=== PATIENT | female | born 1935 | race African-American/Black ===

== ENCOUNTER 2017-10-31 05:23 | Inpatient (IN) | payer MEDICARE, MEDICAID ==
[~2017-10-31] VITALS: Ht 172.7 cm; Wt 103.9 kg
[2017-10-31] MEDS ORDERED: Albuterol/Ipratropium 3ml neb HHN ONE (05:30)
[2017-10-31] MEDS ORDERED: MELATONIN 3 MG1 EAC1 PO (05:34)
[2017-10-31] MEDS ORDERED: LOPERAMIDE2 MG PO (05:34)
[2017-10-31] MEDS ORDERED: FERROUS SULFAT325 MG ORAL (05:34)
[2017-10-31] MEDS ORDERED: AMIODARONE HCL400 M1 ORAL (05:34)
[2017-10-31] MEDS ORDERED: ADALAT20 MG ORAL (05:34)
[2017-10-31] MEDS ORDERED: ASPIRIN EC325 MG ORAL (05:34)
[2017-10-31] MEDS ORDERED: METFORMIN HCL850 M1 ORAL (05:34)
[2017-10-31] MEDS ORDERED: CARVEDILOL12.5 MG ORAL (05:34)
[2017-10-31] MEDS ORDERED: PROTONIX40 MG ORAL (05:34)
[2017-10-31] MEDS ORDERED: ZOLOFT25 MG ORAL (05:34)
[2017-10-31] MEDS ORDERED: FUROSEMIDE40 MG ORAL (05:34)
[2017-10-31] MEDS ORDERED: TYLENOL EXTRA500 MG ORAL (05:36)
[2017-10-31] MEDS ORDERED: GLIPIZIDE5 MG ORAL (05:36)
[2017-10-31] MEDS ORDERED: VOLTAREN100 G1 TP (05:36)
[2017-10-31] MEDS ORDERED: GABAPENTIN100 MG ORAL (05:39)
[2017-10-31] MEDS ORDERED: NORCO 5-325 TA1 EACH ORAL (05:39)
[2017-10-31] MEDS ORDERED: Albuterol/Ipratropium 3ml neb ONE (05:39)
[2017-10-31 05:52] VITALS: BP 168/83
[2017-10-31 06:04] LABS: BASOPHILS % (AUTO) 1.8 % (0.0-2.0); EOSINOPHILS % (AUTO) 1.2 % (0.0-3.0); HEMATOCRIT 42.4 % (37.0-47.0); HEMOGLOBIN 13.2 G/DL (12.0-16.0); LYMPHOCYTES % (AUTO) 11.8 % (20.0-45.0); MEAN CORPUSCULAR VOLUME 89 FL (80-99); MONOCYTES % (AUTO) 4.9 % (1.0-10.0); NEUTROPHILS % (AUTO) 80.4 % (45.0-75.0); PLATELET COUNT 344 K/UL (150-450); RED BLOOD COUNT 4.74 M/UL (4.20-5.40); RED CELL DISTRIBUTION WIDTH 13.7 % (11.6-14.8); WHITE BLOOD COUNT 16.2 K/UL (4.8-10.8)
--- NOTE | 2017-10-31 06:20 | Emergency Room Report ---
History of Present Illness General Chief Complaint: Upper Respiratory Illness Source: Patient, Medical Record, EMS, PMD Present Illness HPI Is an 82-year-old female [facility] patient with a history of CHF and diabetes. She presents with chief complaint shortness of breath and hypoxia. Onset today. She has a mild cough but no fever or chills. Cough is whitish and sputum. No nausea no vomiting. No chest pain. Does have edema. Worse with exertion. Worse with lying flat. Better with rest. Allergies: Coded Allergies: CODEINE (Verified Allergy, Unknown, 10/31/17) SULFA (SULFONAMIDE ANTIBIOTICS) (Verified Allergy, Unknown, 10/31/17) Patient History Past Medical History: see triage record, old chart reviewed, DM, CHF Past Surgical History: other Pertinent Family History: none Social History: Denies: smoking Now: No Immunizations: other Reviewed Nursing Documentation: PMH: Agreed; PSxH: Agreed Nursing Documentation-PMH Hx Cardiac Problems: Yes - Heart Failure, a.fib Hx Hypertension: Yes - Thrombocytopenia, anemia Hx Diabetes: Yes Hx Gastrointestinal Problems: Yes - Peptic ulcer History Of Psychiatric Problem: Yes - Depression Review of Systems Eye: Denies: eye pain, blurred vision ENT: Denies: ear pain, nose congestion, throat swelling Respiratory: Reports: cough, shortness of breath Cardiovascular: Denies: chest pain, palpitations Gastrointestinal: Denies: abdominal pain, diarrhea, nausea, vomiting Musculoskeletal: Denies: back pain, joint pain Skin: Denies: rash Neurological: Denies: headache, numbness Endocrine: Denies: increased thirst, increased urine Hematologic/Lymphatic: Denies: easy bruising All Other Systems: negative except mentioned in HPI Physical Exam Vital Signs Date Time Temp Pulse Resp B/P (MAP) Pulse Ox O2 Delivery O2 Flow Rate FiO2 10/31/17 05:22 97.7 72 16 168/83 95 Nasal Cannula 6.0 97.7 10/31/17 05:35 28 vitals with high blood pressure and hypoxia Sp02 EP Interpretation: reviewed, normal General Appearance: well appearing, no apparent distress, alert Head: normocephalic, atraumatic Eyes: bilateral eye PERRL, bilateral eye EOMI ENT: hearing grossly normal, normal pharynx Neck: full range of motion, supple, no meningismus Respiratory: chest non-tender, rales Cardiovascular #1: regular rate, rhythm, no murmur Gastrointestinal: normal bowel sounds, non tender, no mass, no organomegaly, no bruit, non-distended Musculoskeletal: back normal, normal range of motion, swelling - 2+ edema Neurologic: alert, oriented x3 Psychiatric: mood/affect normal Skin: warm/dry Medical Decision Making Diagnostic Impression: Primary Impression: Acute exacerbation of CHF (congestive heart failure) Qualified Codes: I50.9 - Heart failure, unspecified ER Course Patient presents with hypoxia and shortness of breath. Chest x-ray showed CHF. Lasix given. No evidence of pneumonia. No evidence of ACS, PE, dissection to name a few. Labs are still pending. Will admit to Dr. Ko for further w/ u. EKG Diagnostic Results Rate: normal Rhythm: NSR ST Segments: no acute changes Rhythm Strip Diag. Results Rhythm Strip Time: 06:19 EP Interpretation: yes Rate: 72 Rhythm: NSR, no PVC's, no ectopy Chest X-Ray Diagnostic Results Chest X-Ray Diagnostic Results : Chest X-Ray Ordered: Yes # of Views/Limited/Complete: 1 View Indication: Shortness of Breath EP Interpretation: Yes Interpretation: no consolidation, no effusion, no pneumothorax, other - CM with CHF Impression: Other - CHF Electronically Signed by: Sushil Yung MD Last Vital Signs Date Time Temp Pulse Resp B/P (MAP) Pulse Ox O2 Delivery O2 Flow Rate FiO2 10/31/17 05:52 72 22 Nasal Cannula 2.0 28 10/31/17 05:52 97.7 168/83 99 97.7 Status: improved Disposition: ADMITTED INPATIENT Condition: Serious Referrals: NOT CHOSEN PEARL/,REFERRING (PCP) SUSHIL YUNG M.D. Oct 31, 2017 06:20
[2017-10-31 06:23] LABS: ANION GAP 11 mmol/L (5-15); BLOOD UREA NITROGEN 20 mg/dL (7-18); CALCIUM 9.4 MG/DL (8.5-10.1); CARBON DIOXIDE 25 MMOL/L (21-32); CHLORIDE 103 MMOL/L (98-107); CREATININE 1.3 MG/DL (0.55-1.30); POTASSIUM 4.7 MMOL/L (3.5-5.1); SODIUM 139 MMOL/L (136-145)
[2017-10-31 06:26] LABS: BILIRUBIN, URINE NEGATIVE (NEGATIVE); COLOR,URINE PALE YELLOW; GLUCOSE, URINE (UA) NEGATIVE (NEGATIVE); KETONES,URINE NEGATIVE (NEGATIVE); LEUKOCYTE ESTERASE ,URINE NEGATIVE (NEGATIVE); NITRITE,URINE POSITIVE (NEGATIVE); PH,URINE 5 (4.5-8.0); PROTEIN,URINE NEGATIVE (NEGATIVE); UROBILINOGEN,URINE NORMAL MG/DL (0.0-1.0)
[2017-10-31 06:30] LABS: APPEARANCE,URINE CLOUDY
[2017-10-31 06:36] LABS: ALANINE AMINOTRANSFERASE 18 U/L (12-78); ALBUMIN 3.8 G/DL (3.4-5.0); ALBUMIN/GLOBULIN RATIO 0.7 (1.0-2.7); ALKALINE PHOSPHATASE 99 U/L (46-116); ASPARTATE AMINO TRANSFERASE 17 U/L (15-37); BILIRUBIN,TOTAL 0.3 MG/DL (0.2-1.0); CKMB 1.7 NG/ML (0.0-3.6); CREATINE KINASE 85 U/L (26-308)
--- NOTE | 2017-10-31 07:04 | Diagnostic Imaging Report ---
EXAM: XR Chest, 1 View CLINICAL HISTORY: SOB TECHNIQUE: Frontal view of the chest. COMPARISON: No relevant prior studies available. FINDINGS: Lungs: Mild patchy infiltrate in the right mid to lower lung. Pleural space: Unremarkable. No pneumothorax. Heart: Enlarged cardiac silhouette. No priya edema or failure. Mediastinum: Unremarkable. Bones/joints: Unremarkable. IMPRESSION: Mild patchy infiltrate in the right mid to lower lung. Cardiomegaly.
[2017-10-31] MEDS ORDERED: Ampicillin/Sulbactam Sod 3 GM in NS 110 ML IVPB ONE (07:15)
[2017-10-31] MEDS ORDERED: Unasyn 3gm Inj ONE (07:27)
[2017-10-31] MEDS ORDERED: Ampicillin/Sulbactam Sod 3 GM in D5W 110 ML IVPB ONE (07:45)
[2017-10-31 07:51] VITALS: BP 154/76
[2017-10-31 08:20] VITALS: BP 152/65
[2017-10-31] MEDS ORDERED: Acetaminophen 500mg (ES) tab ORAL PRN (10:45)
[2017-10-31] MEDS ORDERED: Loperamide 2mg cap ORAL PRN (10:45)
[2017-10-31] MEDS ORDERED: Furosemide 40mg tab ORAL SCH (11:00)
[2017-10-31] MEDS: NovoLOG Insulin Flexpen SUBQ SCH ×3 (11:30→21:34)
--- NOTE | 2017-10-31 11:46 | Pulmonology Progress Note ---
Assessment/Plan Assessment/Plan PI Is an 82-year-old female senior care patient with a history of CHF and diabetes. She presents with chief complaint shortness of breath and hypoxia. Onset today. She has a mild cough but no fever or chills. Cough is whitish and sputum. No nausea no vomiting. No chest pain. Does have edema. Worse with exertion. Worse with lying flat. Better with rest. Allergies: Coded Allergies: CODEINE (Verified Allergy, Unknown, 10/31/17) SULFA (SULFONAMIDE ANTIBIOTICS) (Verified Allergy, Unknown, 10/31/17) Patient History Past Medical History: see triage record, old chart reviewed, DM, CHF Past Surgical History: other Pertinent Family History: none Social History: Denies: smoking Now: No Immunizations: other Reviewed Nursing Documentation: PMH: Agreed; PSxH: Agreed Nursing Documentation-PMH Hx Cardiac Problems: Yes - Heart Failure, a.fib Hx Hypertension: Yes - Thrombocytopenia, anemia Hx Diabetes: Yes Hx Gastrointestinal Problems: Yes - Peptic ulcer History Of Psychiatric Problem: Yes - Depression Review of Systems Eye: Denies: eye pain, blurred vision ENT: Denies: ear pain, nose congestion, throat swelling Respiratory: Reports: cough, shortness of breath Cardiovascular: Denies: chest pain, palpitations Gastrointestinal: Denies: abdominal pain, diarrhea, nausea, vomiting Musculoskeletal: Denies: back pain, joint pain Skin: Denies: rash Neurological: Denies: headache, numbness Endocrine: Denies: increased thirst, increased urine Hematologic/Lymphatic: Denies: easy bruising All Other Systems: negative except mentioned in HPI Physical Exam Vital Signs Date Time Temp Pulse Resp B/P (MAP) Pulse Ox O2 Delivery O2 Flow Rate FiO2 10/31/17 05:22 97.7 72 16 168/83 95 Nasal Cannula 6.0 97.7 10/31/17 05:35 28 vitals with high blood pressure and hypoxia Sp02 EP Interpretation: reviewed, normal General Appearance: well appearing, no apparent distress, alert Head: normocephalic, atraumatic Eyes: bilateral eye PERRL, bilateral eye EOMI ENT: hearing grossly normal, normal pharynx Neck: full range of motion, supple, no meningismus Respiratory: chest non-tender, rales Cardiovascular #1: regular rate, rhythm, no murmur Gastrointestinal: normal bowel sounds, non tender, no mass, no organomegaly, no bruit, non-distended Musculoskeletal: back normal, normal range of motion, swelling - 2+ edema Neurologic: alert, oriented x3 Psychiatric: mood/affect normal Skin: warm/dry Medical Decision Making Diagnostic Impression: Primary Impression: Acute exacerbation of CHF (congestive heart failure) Qualified Codes: I50.9 - Heart failure, unspecified ER Course Patient presents with hypoxia and shortness of breath. Chest x-ray showed CHF. Lasix given. No evidence of pneumonia. No evidence of ACS, PE, dissection to name a few. Labs are still pending. Will admit to Dr. Ko for further w/ u. EKG Diagnostic Results Rate: normal Rhythm: NSR ST Segments: no acute changes Rhythm Strip Diag. Results Rhythm Strip Time: 06:19 EP Interpretation: yes Rate: 72 Rhythm: NSR, no PVC's, no ectopy Chest X-Ray Diagnostic Results Chest X-Ray Diagnostic Results : Chest X-Ray Ordered: Yes # of Views/Limited/Complete: 1 View Indication: Shortness of Breath EP Interpretation: Yes Interpretation: Right LZ patchy infiltrates, no effusion, no pneumothorax, other - CM with CHF Impression: Other - CHF Assessment: RLL pneumonia [place] resident Possible Viral illness CHF Afib previously on ASA Diabetic Plan: Zosyn/Vanc/Doxy CPT Q6 Atrovent HHN Q6 HHN SQ Heparin Aspiration Precautions ST eval [facility] Soft diet Viral studies Sputum c+s Daily labs Lasix 20mg daily/KCL 20mequ daily Subjective ROS Limited/Unobtainable: Yes Constitutional: Reports: no symptoms HEENT: Repors: no symptoms Respiratory: Reports: dry cough, shortness of breath Cardiovascular: Reports: no symptoms Gastrointestinal/Abdominal: Reports: no symptoms Genitourinary: Reports: no symptoms Neurologic: Reports: no symptoms Psychiatric: Reports: no symptoms Skin: Reports: no symptoms Endocrine: Reports: no symptoms Hematologic: Reports: no symptoms Musculoskeletal: Reports: no symptoms Allergies: Coded Allergies: CODEINE (Verified Allergy, Unknown, 10/31/17) SULFA (SULFONAMIDE ANTIBIOTICS) (Verified Allergy, Unknown, 10/31/17) Objective Last 24 Hour Vital Signs Date Time Temp Pulse Resp B/P (MAP) Pulse Ox O2 Delivery O2 Flow Rate FiO2 10/31/17 11:11 Nasal Cannula 2.0 10/31/17 08:47 97.7 83 24 154/76 99 Nasal Cannula 2.0 28 97.7 10/31/17 08:20 97.7 75 18 152/65 (94) 97 97.7 10/31/17 07:51 97.7 83 24 154/76 99 Nasal Cannula 2.0 28 97.7 10/31/17 05:52 72 22 Nasal Cannula 2.0 28 10/31/17 05:52 97.7 72 22 168/83 99 Nasal Cannula 2.0 28 97.7 10/31/17 05:46 72 22 99 Nasal Cannula 2.0 28 10/31/17 05:35 82 20 99 Nasal Cannula 2.0 28 10/31/17 05:35 36 10/31/17 05:35 78 20 Nasal Cannula 2.0 28 10/31/17 05:22 97.7 72 16 168/83 95 Nasal Cannula 6.0 97.7 Microbiology Date/Time Source Procedure Growth Status 10/31/17 07:29 Rectum Received Laboratory Tests 10/31/17 05:40: White Blood Count 16.2H, Red Blood Count 4.74, Hemoglobin 13.2, Hematocrit 42.4 , Mean Corpuscular Volume 89, Mean Corpuscular Hemoglobin 27.9, Mean Corpuscular Hemoglobin Concent 31.3L, Red Cell Distribution Width 13.7, Platelet Count 344, Mean Platelet Volume 6.7, Neutrophils (%) (Auto) 80.4H, Lymphocytes (%) (Auto) 11.8L, Monocytes (%) (Auto) 4.9, Eosinophils (%) (Auto) 1.2, Basophils (%) (Auto) 1.8, Prothrombin Time 10.1, Prothromb Time International Ratio 1.0, Activated Partial Thromboplast Time 27, Sodium Level 139, Potassium Level 4.7, Chloride Level 103, Carbon Dioxide Level 25, Anion Gap 11, Blood Urea Nitrogen 20H, Creatinine 1.3, Estimat Glomerular Filtration Rate , Glucose Level 158H, Lactic Acid Level 2.00, Calcium Level 9.4, Total Bilirubin 0.3, Aspartate Amino Transf (AST/SGOT) 17, Alanine Aminotransferase ( ALT/SGPT) 18, Alkaline Phosphatase 99, Total Creatine Kinase 85, Creatine Kinase MB 1.7, Creatine Kinase MB Relative Index 2.0, Troponin I 0.000, Pro-B- Type Natriuretic Peptide 310H, Total Protein 9.1H, Albumin 3.8, Globulin 5.3, Albumin/Globulin Ratio 0.7L 10/31/17 06:00: Urine Color Pale yellow, Urine Appearance Cloudy, Urine pH 5, Urine Specific [place] 1.015, Urine Protein Negative, Urine Glucose (UA) Negative, Urine Ketones Negative, Urine Occult Blood Negative, Urine Nitrite PositiveH, Urine Bilirubin Negative, Urine Urobilinogen Normal, Urine Leukocyte Esterase Negative , Urine RBC 0, Urine WBC 2-4, Urine Squamous Epithelial Cells None, Urine Bacteria ManyH 10/31/17 07:21: Lactic Acid Level 1.90 Current Medications Medications (Trade) Dose Ordered Sig/Renetta Route PRN Reason Start Time Stop Time Status Last Admin Dose Admin Acetaminophen (Tylenol) 500 mg Q6H PRN ORAL Mild Pain/Temp > 100.5 10/31/17 10:45 11/30/17 10:44 Acetaminophen/ Hydrocodone Bitart ([place] 5/325) 1 tab Q8H PRN ORAL For Pain 10/31/17 10:45 11/07/17 10:44 Amiodarone HCl (Cordarone) 200 mg DAILY ORAL 10/31/17 11:00 11/30/17 10:59 Aspirin (Ecotrin) 325 mg DAILY ORAL 10/31/17 11:00 11/30/17 10:59 Carvedilol (Coreg) 12.5 mg EVERY 12 HOURS ORAL 10/31/17 21:00 11/30/17 20:59 Dextrose (Dextrose 50%) 25 ml STAT PRN IV Hypoglycemia 10/31/17 10:30 11/30/17 10:29 Dextrose (Dextrose 50%) 50 ml STAT PRN IV Hypoglycemia 10/31/17 10:30 11/30/17 10:29 Ferrous Sulfate (Feosol) 325 mg TWICE A DAY ORAL 10/31/17 11:00 11/30/17 10:59 Furosemide (Lasix) 40 mg DAILY ORAL 10/31/17 11:00 11/30/17 10:59 Gabapentin (Neurontin) 100 mg Q8HR ORAL 10/31/17 14:00 11/30/17 13:59 Glipizide (Glucotrol) 5 mg DAILY ORAL 10/31/17 11:00 11/30/17 10:59 Insulin Aspart (NovoLOG) AC+HS SUBQ 10/31/17 11:30 11/30/17 11:29 Loperamide HCl (Imodium) 2 mg Q8H PRN ORAL Diarrhea 10/31/17 10:45 11/30/17 10:44 Metformin HCl (Glucophage) 850 mg BID ORAL 10/31/17 18:00 11/30/17 17:59 Pantoprazole (Protonix) 40 mg EVERY 12 HOURS ORAL 10/31/17 21:00 11/30/17 20:59 Sertraline HCl (Zoloft) 25 mg DAILY ORAL 10/31/17 11:00 11/30/17 10:59 Korey Damico MD Oct 31, 2017 11:46
[2017-10-31 12:00] VITALS: BP 155/60
[2017-10-31] MEDS ORDERED: NovoLOG Insulin Flexpen SUBQ SCH (12:00)
[2017-10-31] MEDS: Aspirin EC 325mg tab ORAL SCH (12:22)
[2017-10-31] MEDS: Sertraline 50mg tab ORAL SCH (12:23)
[2017-10-31] MEDS: Amiodarone 200mg tab ORAL SCH (12:23)
[2017-10-31] MEDS: GlipiZIDE 5mg tab ORAL SCH (12:23)
[2017-10-31] MEDS: Vancomycin 1250mg/D5W 250ml IVPB SCH (13:51)
[2017-10-31] MEDS: Ipratropium 0.02% Inh Soln 2.5ml UD HHN PRN ×2 (13:58→19:43)
[2017-10-31] MEDS: Piperacillin/Tazobactam 3.375 GM in D5W 110 ML IVPB SCH ×2 (14:47→21:32)
[2017-10-31] MEDS: Norco 5mg/325mg tab ORAL PRN ×2 (14:49→23:23)
[2017-10-31] MEDS ORDERED: Guaifenesin/DM 10ml syrup ORAL PRN (15:00)
[2017-10-31 16:00] VITALS: BP 155/56
[2017-10-31 20:00] VITALS: BP 164/70
--- NOTE | 2017-10-31 21:15 | Consultation ---
DATE OF CONSULTATION: 10/31/2017 INFECTIOUS DISEASE CONSULTATION CONSULTING PHYSICIAN: Osito Carney M.D. PRIMARY ATTENDING PHYSICIAN: Nia Valdez M.D. REASON FOR CONSULT: Pneumonia. HISTORY OF PRESENT ILLNESS: This is an 82-year-old female, who is a [facility] resident admitted today complaining of shortness of breath, cough, and sore throat. The patient is awake, alert, and a good historian. Has leukocytosis in the ER and infiltrate in chest x-ray. PAST MEDICAL HISTORY: Significant for diabetes mellitus type 2, congestive heart failure, atrial fibrillation, anemia, depression, peptic ulcer, and chronic edema of legs. PAST SURGICAL HISTORY: Significant for right ankle surgery and tubal surgery many years ago. MEDICATIONS: Lasix, carvedilol, Protonix, doxycycline, metformin, gabapentin, Zosyn, vancomycin, ipratropium, insulin, amiodarone, aspirin, ferrous sulfate, glipizide, Zoloft, and [place]. ALLERGIES: Allergic to sulfa drugs and codeine. SOCIAL HISTORY: [facility] resident. Single. Has seven kids. No smoking. No drugs or alcohol abuse. FAMILY HISTORY: Negative. REVIEW OF SYSTEMS: Some sore throat. No fever. No chills. Has coughing and shortness of breath more in exertion. No nausea. No vomiting. No diarrhea. No dysuria. PHYSICAL EXAMINATION: VITAL SIGNS: Temperature 97.7, pulse 83, and blood pressure 154/76. GENERAL APPEARANCE: No acute distress. Seems to be obese. HEAD AND NECK: [place] conjunctiva. No oral lesion. Uses denture. HEART: Regular. LUNGS: Clear. ABDOMEN: Soft and nontender. EXTREMITY: He has edema of the legs. NEUROLOGIC: Awake, alert, and oriented x3. No focal signs. LABORATORY AND DIAGNOSTIC DATA: WBC 16.2, hemoglobin 13.2, hematocrit 42.4, and platelets 344,000. Sodium 139, potassium 4.7, chloride 102, bicarb 25, BUN 20, creatinine 1.3, and glucose 158. Total protein is 9.1. Albumin is normal. Lactic acid within normal limits. UA was negative for rbc and wbc 2 to 4. Chest x-ray showed right-sided infiltrate in the mid to lower lung. IMPRESSION: Pneumonia in the right lung. The patient also has history of congestive heart failure and chronic edema of the legs. She has diabetes mellitus. Has depression. RECOMMENDATION: We will continue with current antibiotics, vancomycin, Zosyn, and doxycycline. We will follow up the cultures and narrow antibiotics. At the end of my exam, I thank Dr. Valdez for involving me in the care of this patient. Osito Carney M.D. DR: ZHAO JOB#: [id number] CC: VINICIUS
[2017-10-31] MEDS: Carvedilol 12.5mg tab ORAL SCH (21:32)
--- NOTE | 2017-10-31 23:45 | History and Physical Report ---
DATE OF ADMISSION: 10/31/2017 CHIEF COMPLAINT: The patient is admitted for CHF as well as most likely pneumonia. HISTORY OF PRESENT ILLNESS: The patient was hypoxic and having somewhat productive cough at the long-term and transferred the patient. Chest x-ray shows patchy right infiltrate, leukocytosis, cough, and hypoxia at the long-term. The patient is admitted for pneumonia and we will need to rule out congestive heart failure as well. The patient also has elevated BUN. The patient denies orthopnea. Does have leg edema. Denies chills. Denies fever. Denies chest pain. Denies any significant pain. Denies nausea, vomiting, or diarrhea. PAST MEDICAL HISTORY: Significant for arrhythmia, hypertension, degenerative joint disease, iron-deficiency anemia, , non-insulin dependent diabetes mellitus, gastroesophageal reflux disease, depression, and possible history of congestive heart failure, I will need to verify. MEDICATIONS: Amiodarone, aspirin, Coreg, ferrous sulfate, Lasix, gabapentin, glipizide, melatonin, metformin, nifedipine, Protonix, and sertraline. PAST SURGICAL HISTORY: Back surgery, tubal ligation, and right ankle surgery. ALLERGIES: Codeine and sulfa. FAMILY HISTORY: Does have history of hypertension and diabetes. SOCIAL HISTORY: Denies history of alcohol or illicit drugs. She has history of smoking. Comes from a long-term. REVIEW OF SYSTEMS: HEENT: Denies headaches. RESPIRATORY: Reports mildly productive cough for a couple of days. Denies any wheezing. Denies orthopnea. CARDIOVASCULAR: Denies chest pain. Denies orthopnea. GASTROINTESTINAL: Denies nausea, vomiting, or diarrhea. EXTREMITY: Denies any significant pain. CENTRAL NERVOUS SYSTEM: No change in vision or speech pattern. PHYSICAL EXAMINATION: VITAL SIGNS: Temperature is 97.7, pulse is 72, and blood pressure 168/83. HEENT: PERRLA. NECK: Supple. CHEST: Bibasilar rales. CARDIOVASCULAR: Regular rate and rhythm. GASTROINTESTINAL: Soft and distended. Positive bowel sounds. No organomegaly. EXTREMITIES: A 1+ edema. Reflexes are equal on both sides. Has lower extremity weakness, which is chronic. LABORATORY DATA: WBC of 16.2, hemoglobin 13.2, and platelets 344,000. Sodium 139, potassium 4.7, BUN of 20, creatinine 1.3, and glucose of 158. BNP of 310. Chest x-ray shows patchy right infiltrate. Elevated leukocytosis. ASSESSMENT/PLAN: Pneumonia, rule out congestive heart failure. I have asked Dr. Negrete, Dr. Lopez, and Dr. Osito Carney to see the patient for pneumonia and possible congestive heart failure. The patient is in telemetry. We will monitor the patient closely. Nia Valdez M.D. DR: SENA JOB#: [id number] CC:
[2017-11-01] VITALS (7 sets, daily range): BP systolic 154–171; BP diastolic 50–67
[2017-11-01] MEDS: Piperacillin/Tazobactam 3.375 GM in D5W 110 ML IVPB SCH ×3 (06:21→21:43)
[2017-11-01] MEDS: NovoLOG Insulin Flexpen SUBQ SCH ×4 (06:22→21:00)
[2017-11-01 07:16] LABS: ANION GAP 8 mmol/L (5-15); BLOOD UREA NITROGEN 15 mg/dL (7-18); CALCIUM 9.3 MG/DL (8.5-10.1); CARBON DIOXIDE 27 MMOL/L (21-32); CHLORIDE 104 MMOL/L (98-107); CREATININE 1.1 MG/DL (0.55-1.30); POTASSIUM 4.2 MMOL/L (3.5-5.1); SODIUM 139 MMOL/L (136-145)
[2017-11-01 07:28] LABS: BASOPHILS % (AUTO) 1.4 % (0.0-2.0); EOSINOPHILS % (AUTO) 3.1 % (0.0-3.0); HEMATOCRIT 34.3 % (37.0-47.0); HEMOGLOBIN 11.1 G/DL (12.0-16.0); LYMPHOCYTES % (AUTO) 15.4 % (20.0-45.0); MEAN CORPUSCULAR VOLUME 88 FL (80-99); MONOCYTES % (AUTO) 6.1 % (1.0-10.0); NEUTROPHILS % (AUTO) 73.9 % (45.0-75.0); PLATELET COUNT 268 K/UL (150-450); RED CELL DISTRIBUTION WIDTH 13.6 % (11.6-14.8); WHITE BLOOD COUNT 15.7 K/UL (4.8-10.8)
[2017-11-01] MEDS: Carvedilol 12.5mg tab ORAL SCH ×2 (09:15→21:35)
[2017-11-01] MEDS: Amiodarone 200mg tab ORAL SCH (09:15)
[2017-11-01] MEDS: GlipiZIDE 5mg tab ORAL SCH (09:15)
[2017-11-01] MEDS: Aspirin EC 325mg tab ORAL SCH (09:15)
[2017-11-01] MEDS: Sertraline 50mg tab ORAL SCH (09:16)
[2017-11-01] MEDS: Norco 5mg/325mg tab ORAL PRN ×2 (09:25→20:48)
--- NOTE | 2017-11-01 12:10 | Consultation ---
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 the pt has hx of depression and anxiety, the pt is short of breath and is anxious. the pt is not having psychotic or manic sxs Allergies: Coded Allergies: CODEINE (Verified Allergy, Unknown, 10/31/17) SULFA (SULFONAMIDE ANTIBIOTICS) (Verified Allergy, Unknown, 10/31/17) Medication History Scheduled Amiodarone Hcl* (Amiodarone Hcl*), 200 MG ORAL DAILY, (Reported) Aspirin* (Aspirin Ec*), 325 MG ORAL DAILY, (Reported) Carvedilol* (Carvedilol*), 12.5 MG ORAL EVERY 12 HOURS, (Reported) Diclofenac Sodium (Voltaren), 4 GM TP TID, (Reported) Ferrous Sulfate* (Ferrous Sulfate*), 325 MG ORAL TWICE A DAY, (Reported) Furosemide* (Lasix*), 40 MG ORAL DAILY, (Reported) Gabapentin* (Gabapentin*), 100 MG ORAL Q8HR, (Reported) Glipizide* (Glipizide*), 5 MG ORAL BIDAC, (Reported) Loperamide Hcl (Loperamide), 2 MG PO Q8HR, (Reported) Melatonin/Pyridoxine HCl (B6) (Melatonin 3 mg Tablet), 1 EACH PO BEDTIME, ( Reported) Metformin Hcl* (Metformin Hcl*), 850 MG ORAL BID, (Reported) Nifedipine (Nifedipine*), 60 MG ORAL EVERY 12 HOURS, (Reported) Pantoprazole* (Protonix*), 40 MG ORAL EVERY 12 HOURS, (Reported) Sertraline Hcl* (Zoloft*), 25 MG ORAL DAILY, (Reported) Scheduled PRN Acetaminophen* (Tylenol Extra Strength*), 500 MG ORAL Q6H PRN for Mild Pain/ Temp > 100.5, (Reported) Hydrocodone Bit/Acetaminophen 5-325* ([place] 5-325*), 1 TAB ORAL Q8HR PRN for For Pain, (Reported) Patient History Limited by: medical condition History Provided By: Patient, Medical Record, PMD Healthcare decision maker Resuscitation status Full Code Advanced Directive on File Yes Past Medical/Surgical History Past Medical/Surgical History: (1) Acute exacerbation of CHF (congestive heart failure) Review of Systems Psychiatric: Reports: anxiety, depressed feelings, emotional problems Physical Exam General Appearance: no apparent distress, alert Neurologic: oriented x 3, responsive, depressed affect Last 24 Hour Vital Signs Date Time Temp Pulse Resp B/P (MAP) Pulse Ox O2 Delivery O2 Flow Rate FiO2 11/01/17 09:15 69 163/50 11/01/17 09:00 Room Air 11/01/17 08:00 98.4 69 20 163/50 (87) 96 98.4 11/01/17 06:34 158/61 (93) 11/01/17 04:00 98.4 69 19 171/60 (97) 92 98.4 11/01/17 04:00 69 11/01/17 00:00 98.2 67 20 158/59 (92) 96 98.2 11/01/17 00:00 67 10/31/17 21:32 87 164/70 10/31/17 21:00 Room Air 10/31/17 20:00 98.4 87 20 164/70 (101) 91 98.4 10/31/17 20:00 78 10/31/17 19:53 80 20 100 Room Air 21 10/31/17 19:53 21 10/31/17 19:43 78 18 99 Room Air 21 10/31/17 19:42 73 22 Nasal Cannula 2.0 28 10/31/17 16:00 83 10/31/17 16:00 83 10/31/17 16:00 99.6 84 19 155/56 (89) 96 99.6 10/31/17 15:49 98.2 10/31/17 14:49 98.2 10/31/17 14:05 36 10/31/17 14:05 82 20 100 Room Air 21 10/31/17 13:58 77 18 98 Room Air 21 Intake and Output 10/31/17 11/01/17 19:00 07:00 Intake Total 300 ml 367.9 ml Balance 300 ml 367.9 ml Intake Oral 300 ml 240 ml IV Total 127.9 ml # Voids 5 3 Laboratory Tests Test 11/01/17 05:20 White Blood Count 15.7 K/UL (4.8-10.8) H Red Blood Count 3.90 M/UL (4.20-5.40) L Hemoglobin 11.1 G/DL (12.0-16.0) L Hematocrit 34.3 % (37.0-47.0) L Mean Corpuscular Volume 88 FL (80-99) Mean Corpuscular Hemoglobin 28.5 PG (27.0-31.0) Mean Corpuscular Hemoglobin Concent 32.5 G/DL (32.0-36.0) Red Cell Distribution Width 13.6 % (11.6-14.8) Platelet Count 268 K/UL (150-450) Mean Platelet Volume 7.1 FL (6.5-10.1) Neutrophils (%) (Auto) 73.9 % (45.0-75.0) Lymphocytes (%) (Auto) 15.4 % (20.0-45.0) L Monocytes (%) (Auto) 6.1 % (1.0-10.0) Eosinophils (%) (Auto) 3.1 % (0.0-3.0) H Basophils (%) (Auto) 1.4 % (0.0-2.0) Sodium Level 139 MMOL/L (136-145) Potassium Level 4.2 MMOL/L (3.5-5.1) Chloride Level 104 MMOL/L (98-107) Carbon Dioxide Level 27 MMOL/L (21-32) Anion Gap 8 mmol/L (5-15) Blood Urea Nitrogen 15 mg/dL (7-18) Creatinine 1.1 MG/DL (0.55-1.30) Estimat Glomerular Filtration Rate mL/min (>60) Glucose Level 91 MG/DL (74-106) Calcium Level 9.3 MG/DL (8.5-10.1) Microbiology Date/Time Source Procedure Growth Status 10/31/17 23:19 Nasal Nares Influenza Types A,B Antigen (GELY) - Final Complete Height (Feet): 5 Height (Inches): 8.00 Weight (Pounds): 228 Medications Current Medications Medications (Trade) Dose Ordered Sig/Renetta Route PRN Reason Start Time Stop Time Status Last Admin Dose Admin Acetaminophen (Tylenol) 500 mg Q6H PRN ORAL Mild Pain/Temp > 100.5 10/31/17 10:45 11/30/17 10:44 Acetaminophen/ Hydrocodone Bitart ([place] 5/325) 1 tab Q8H PRN ORAL For Pain 10/31/17 10:45 11/07/17 10:44 11/01/17 09:25 Amiodarone HCl (Cordarone) 200 mg DAILY ORAL 10/31/17 11:00 11/30/17 10:59 11/01/17 09:15 Aspirin (Ecotrin) 325 mg DAILY ORAL 10/31/17 11:00 11/30/17 10:59 11/01/17 09:15 Carvedilol (Coreg) 12.5 mg EVERY 12 HOURS ORAL 10/31/17 21:00 11/30/17 20:59 11/01/17 09:15 Dextrose (Dextrose 50%) 25 ml STAT PRN IV Hypoglycemia 10/31/17 10:30 11/30/17 10:29 Dextrose (Dextrose 50%) 50 ml STAT PRN IV Hypoglycemia 10/31/17 10:30 11/30/17 10:29 Doxycycline Monohydrate (Vibramycin) 100 mg EVERY 12 HOURS ORAL 10/31/17 21:00 11/07/17 20:59 11/01/17 09:15 Ferrous Sulfate (Feosol) 325 mg TWICE A DAY ORAL 10/31/17 11:00 11/30/17 10:59 11/01/17 09:15 Furosemide (Lasix) 20 mg DAILY ORAL 11/01/17 09:00 12/01/17 08:59 11/01/17 09:15 Gabapentin (Neurontin) 100 mg Q8HR ORAL 10/31/17 14:00 11/30/17 13:59 11/01/17 06:21 Glipizide (Glucotrol) 5 mg DAILY ORAL 10/31/17 11:00 11/30/17 10:59 11/01/17 09:15 Guaifenesin/ Dextromethorphan (Robitussin DM Syrup) 10 ml Q4H PRN ORAL For Cough 10/31/17 15:00 11/30/17 14:59 Insulin Aspart (NovoLOG) AC+HS SUBQ 10/31/17 11:30 11/30/17 11:29 Ipratropium [place] (Atrovent) 500 mcg Q6H PRN HHN Shortness of Breath 10/31/17 12:00 11/05/17 11:59 10/31/17 19:43 Loperamide HCl (Imodium) 2 mg Q8H PRN ORAL Diarrhea 10/31/17 10:45 11/30/17 10:44 Metformin HCl (Glucophage) 850 mg BID ORAL 10/31/17 18:00 11/30/17 17:59 11/01/17 09:15 Pantoprazole (Protonix) 40 mg EVERY 12 HOURS ORAL 10/31/17 21:00 11/30/17 20:59 11/01/17 09:15 Piperacillin Sod/ Tazobactam Sod 3.375 gm/Dextrose 110 ml @ 27.5 mls/hr Q8HR IVPB 10/31/17 14:00 11/07/17 13:59 11/01/17 06:21 Potassium Chloride (K-Dur) 20 meq DAILY ORAL 10/31/17 14:00 11/30/17 13:59 11/01/17 09:16 Sertraline HCl (Zoloft) 25 mg DAILY ORAL 10/31/17 11:00 11/30/17 10:59 11/01/17 09:16 Vancomycin HCl (Vanco rx to dose) 1 ea DAILY PRN MISC Per rx protocol 10/31/17 12:00 11/30/17 11:59 Vancomycin HCl/ Dextrose 250 ml @ 166.667 mls/hr Q24H IVPB 10/31/17 13:00 11/05/17 12:59 10/31/17 13:51 Assessment/Plan Assessment/Plan MDD Anxiety d/o -zoloft -provided ro/Nasrin Hanson MD Nov 01, 2017 12:10
[2017-11-01] MEDS: Vancomycin 1250mg/D5W 250ml IVPB SCH (12:12)
[2017-11-01] MEDS: Ipratropium 0.02% Inh Soln 2.5ml UD HHN PRN (13:29)
--- NOTE | 2017-11-01 13:51 | Infectious Diseases Prog Note ---
Assessment/Plan Assessment/Plan A; Pneumonia CHF DM Depression Obesity P; Continue Zosyn & Doxycycline Discontinue Vancomycin Subjective ROS Limited/Unobtainable: No Constitutional: Reports: no symptoms Respiratory: Reports: productive cough Cardiovascular: Reports: no symptoms Gastrointestinal/Abdominal: Reports: no symptoms Genitourinary: Reports: no symptoms Neurologic: Reports: no symptoms Allergies: Coded Allergies: CODEINE (Verified Allergy, Unknown, 10/31/17) SULFA (SULFONAMIDE ANTIBIOTICS) (Verified Allergy, Unknown, 10/31/17) Objective Vital Signs Last 24 Hour Vital Signs Date Time Temp Pulse Resp B/P (MAP) Pulse Ox O2 Delivery O2 Flow Rate FiO2 11/01/17 13:27 78 20 98 Room Air 21 11/01/17 13:27 21 11/01/17 12:00 98.1 63 20 154/67 (96) 95 98.1 11/01/17 09:15 69 163/50 11/01/17 09:00 Room Air 11/01/17 08:05 Nasal Cannula 11/01/17 08:00 77 11/01/17 08:00 98.4 69 20 163/50 (87) 96 98.4 11/01/17 06:34 158/61 (93) 11/01/17 04:00 98.4 69 19 171/60 (97) 92 98.4 11/01/17 04:00 69 11/01/17 00:00 98.2 67 20 158/59 (92) 96 98.2 11/01/17 00:00 67 10/31/17 21:32 87 164/70 10/31/17 21:00 Room Air 10/31/17 20:00 98.4 87 20 164/70 (101) 91 98.4 10/31/17 20:00 78 10/31/17 19:53 80 20 100 Room Air 21 10/31/17 19:53 21 10/31/17 19:43 78 18 99 Room Air 21 10/31/17 19:42 73 22 Nasal Cannula 2.0 28 10/31/17 16:00 83 10/31/17 16:00 83 10/31/17 16:00 99.6 84 19 155/56 (89) 96 99.6 10/31/17 15:49 98.2 10/31/17 14:49 98.2 10/31/17 14:05 36 7/22/18 14:05 82 20 100 Room Air 21 10/31/17 13:58 77 18 98 Room Air 21 Height (Feet): 5 Height (Inches): 8.00 Weight (Pounds): 228 General Appearance: no acute distress HEENT: mucous membranes moist Respiratory/Chest: lungs clear Cardiovascular: normal rate Abdomen: soft, non tender Extremities: other - pedal edema Neurologic/Psychiatric: alert, oriented x 3, responsive Microbiology Date/Time Source Procedure Growth Status 10/31/17 23:19 Nasal Nares Influenza Types A,B Antigen (GELY) - Final Complete 10/31/17 06:00 Urine,Clean Catch Urine Culture - Preliminary Gram Negative Bacillus 1 Resulted 10/31/17 07:29 Rectum Received Laboratory Tests Test 11/01/17 05:20 White Blood Count 15.7 K/UL (4.8-10.8) H Red Blood Count 3.90 M/UL (4.20-5.40) L Hemoglobin 11.1 G/DL (12.0-16.0) L Hematocrit 34.3 % (37.0-47.0) L Mean Corpuscular Volume 88 FL (80-99) Mean Corpuscular Hemoglobin 28.5 PG (27.0-31.0) Mean Corpuscular Hemoglobin Concent 32.5 G/DL (32.0-36.0) Red Cell Distribution Width 13.6 % (11.6-14.8) Platelet Count 268 K/UL (150-450) Mean Platelet Volume 7.1 FL (6.5-10.1) Neutrophils (%) (Auto) 73.9 % (45.0-75.0) Lymphocytes (%) (Auto) 15.4 % (20.0-45.0) L Monocytes (%) (Auto) 6.1 % (1.0-10.0) Eosinophils (%) (Auto) 3.1 % (0.0-3.0) H Basophils (%) (Auto) 1.4 % (0.0-2.0) Sodium Level 139 MMOL/L (136-145) Potassium Level 4.2 MMOL/L (3.5-5.1) Chloride Level 104 MMOL/L (98-107) Carbon Dioxide Level 27 MMOL/L (21-32) Anion Gap 8 mmol/L (5-15) Blood Urea Nitrogen 15 mg/dL (7-18) Creatinine 1.1 MG/DL (0.55-1.30) Estimat Glomerular Filtration Rate mL/min (>60) Glucose Level 91 MG/DL (74-106) Calcium Level 9.3 MG/DL (8.5-10.1) Current Medications Medications (Trade) Dose Ordered Sig/Renetta Route PRN Reason Start Time Stop Time Status Last Admin Dose Admin Acetaminophen (Tylenol) 500 mg Q6H PRN ORAL Mild Pain/Temp > 100.5 10/31/17 10:45 11/30/17 10:44 Acetaminophen/ Hydrocodone Bitart ([place] 5/325) 1 tab Q8H PRN ORAL For Pain 10/31/17 10:45 11/07/17 10:44 11/01/17 09:25 Amiodarone HCl (Cordarone) 200 mg DAILY ORAL 10/31/17 11:00 11/30/17 10:59 11/01/17 09:15 Aspirin (Ecotrin) 325 mg DAILY ORAL 10/31/17 11:00 11/30/17 10:59 11/01/17 09:15 Carvedilol (Coreg) 12.5 mg EVERY 12 HOURS ORAL 10/31/17 21:00 11/30/17 20:59 11/01/17 09:15 Dextrose (Dextrose 50%) 25 ml STAT PRN IV Hypoglycemia 10/31/17 10:30 11/30/17 10:29 Dextrose (Dextrose 50%) 50 ml STAT PRN IV Hypoglycemia 10/31/17 10:30 11/30/17 10:29 Doxycycline Monohydrate (Vibramycin) 100 mg EVERY 12 HOURS ORAL 10/31/17 21:00 11/07/17 20:59 11/01/17 09:15 Ferrous Sulfate (Feosol) 325 mg TWICE A DAY ORAL 10/31/17 11:00 11/30/17 10:59 11/01/17 09:15 Furosemide (Lasix) 20 mg DAILY ORAL 11/01/17 09:00 12/01/17 08:59 11/01/17 09:15 Gabapentin (Neurontin) 100 mg Q8HR ORAL 10/31/17 14:00 11/30/17 13:59 11/01/17 06:21 Glipizide (Glucotrol) 5 mg DAILY ORAL 10/31/17 11:00 11/30/17 10:59 11/01/17 09:15 Guaifenesin/ Dextromethorphan (Robitussin DM Syrup) 10 ml Q4H PRN ORAL For Cough 10/31/17 15:00 11/30/17 14:59 Insulin Aspart (NovoLOG) AC+HS SUBQ 10/31/17 11:30 11/30/17 11:29 Ipratropium [place] (Atrovent) 500 mcg Q6H PRN HHN Shortness of Breath 10/31/17 12:00 11/05/17 11:59 11/01/17 13:29 Loperamide HCl (Imodium) 2 mg Q8H PRN ORAL Diarrhea 10/31/17 10:45 11/30/17 10:44 Metformin HCl (Glucophage) 850 mg BID ORAL 10/31/17 18:00 11/30/17 17:59 11/01/17 09:15 Pantoprazole (Protonix) 40 mg EVERY 12 HOURS ORAL 10/31/17 21:00 11/30/17 20:59 11/01/17 09:15 Piperacillin Sod/ Tazobactam Sod 3.375 gm/Dextrose 110 ml @ 27.5 mls/hr Q8HR IVPB 10/31/17 14:00 11/07/17 13:59 11/01/17 06:21 Potassium Chloride (K-Dur) 20 meq DAILY ORAL 10/31/17 14:00 11/30/17 13:59 11/01/17 09:16 Sertraline HCl (Zoloft) 25 mg DAILY ORAL 10/31/17 11:00 11/30/17 10:59 11/01/17 09:16 Vancomycin HCl (Vanco rx to dose) 1 ea DAILY PRN MISC Per rx protocol 10/31/17 12:00 11/30/17 11:59 Vancomycin HCl/ Dextrose 250 ml @ 166.667 mls/hr Q24H IVPB 10/31/17 13:00 11/05/17 12:59 11/01/17 12:12 Osito Carney MD Nov 01, 2017 13:51
--- NOTE | 2017-11-01 15:30 | General Progress Note ---
Assessment/Plan Status: stable Assessment/Plan MDD Anxiety d/o -zoloft -provided ro/st Subjective Date patient seen: Nov 01, 2017 Neurologic/Psychiatric: Reports: anxiety, depressed, emotional problems Allergies: Coded Allergies: CODEINE (Verified Allergy, Unknown, 10/31/17) SULFA (SULFONAMIDE ANTIBIOTICS) (Verified Allergy, Unknown, 10/31/17) Objective Last 24 Hour Vital Signs Date Time Temp Pulse Resp B/P (MAP) Pulse Ox O2 Delivery O2 Flow Rate FiO2 11/01/17 13:27 78 20 98 Room Air 21 11/01/17 13:27 21 11/01/17 12:00 98.1 63 20 154/67 (96) 95 98.1 11/01/17 12:00 62 11/01/17 09:15 69 163/50 11/01/17 09:00 Room Air 11/01/17 08:05 Nasal Cannula 11/01/17 08:00 77 11/01/17 08:00 98.4 69 20 163/50 (87) 96 98.4 11/01/17 06:34 158/61 (93) 11/01/17 04:00 98.4 69 19 171/60 (97) 92 98.4 11/01/17 04:00 69 11/01/17 00:00 98.2 67 20 158/59 (92) 96 98.2 11/01/17 00:00 67 10/31/17 21:32 87 164/70 10/31/17 21:00 Room Air 10/31/17 20:00 98.4 87 20 164/70 (101) 91 98.4 10/31/17 20:00 78 10/31/17 19:53 80 20 100 Room Air 21 10/31/17 19:53 21 10/31/17 19:43 78 18 99 Room Air 21 10/31/17 19:42 73 22 Nasal Cannula 2.0 28 10/31/17 16:00 83 10/31/17 16:00 83 10/31/17 16:00 99.6 84 19 155/56 (89) 96 99.6 10/31/17 15:49 98.2 Intake and Output 10/31/17 11/01/17 19:00 07:00 Intake Total 300 ml 367.9 ml Balance 300 ml 367.9 ml Intake Oral 300 ml 240 ml IV Total 127.9 ml # Voids 5 3 Laboratory Tests 11/01/17 05:20: White Blood Count 15.7H, Red Blood Count 3.90L, Hemoglobin 11.1L, Hematocrit 34.3L, Mean Corpuscular Volume 88, Mean Corpuscular Hemoglobin 28.5, Mean Corpuscular Hemoglobin Concent 32.5, Red Cell Distribution Width 13.6, Platelet Count 268, Mean Platelet Volume 7.1, Neutrophils (%) (Auto) 73.9, Lymphocytes (% ) (Auto) 15.4L, Monocytes (%) (Auto) 6.1, Eosinophils (%) (Auto) 3.1H, Basophils (%) (Auto) 1.4, Sodium Level 139, Potassium Level 4.2, Chloride Level 104, Carbon Dioxide Level 27, Anion Gap 8, Blood Urea Nitrogen 15, Creatinine 1.1, Estimat Glomerular Filtration Rate , Glucose Level 91, Calcium Level 9.3 Height (Feet): 5 Height (Inches): 8.00 Weight (Pounds): 228 General Appearance: no apparent distress, alert Neurologic: oriented x 3, responsive, depressed affect Nasrin Fischer MD Nov 01, 2017 15:30
--- NOTE | 2017-11-01 16:46 | General Progress Note ---
Assessment/Plan Problem List: (1) Pneumonia ICD Codes: J18.9 - Pneumonia, unspecified organism SNOMED: 274690456 (2) Acute exacerbation of CHF (congestive heart failure) ICD Codes: I50.9 - Heart failure, unspecified SNOMED: 57469183 Qualifiers: Qualified Codes: I50.9 - Heart failure, unspecified Status: progressing Assessment/Plan persistent leukocytosis pna chf abx per id afebrile not hypoxic Subjective Allergies: Coded Allergies: CODEINE (Verified Allergy, Unknown, 10/31/17) SULFA (SULFONAMIDE ANTIBIOTICS) (Verified Allergy, Unknown, 10/31/17) Subjective cough Objective Last 24 Hour Vital Signs Date Time Temp Pulse Resp B/P (MAP) Pulse Ox O2 Delivery O2 Flow Rate FiO2 11/01/17 13:27 78 20 98 Room Air 21 11/01/17 13:27 21 11/01/17 12:00 98.1 63 20 154/67 (96) 95 98.1 11/01/17 12:00 62 11/01/17 09:15 69 163/50 11/01/17 09:00 Room Air 11/01/17 08:05 Nasal Cannula 11/01/17 08:00 77 11/01/17 08:00 98.4 69 20 163/50 (87) 96 98.4 11/01/17 06:34 158/61 (93) 11/01/17 04:00 98.4 69 19 171/60 (97) 92 98.4 11/01/17 04:00 69 11/01/17 00:00 98.2 67 20 158/59 (92) 96 98.2 11/01/17 00:00 67 10/31/17 21:32 87 164/70 10/31/17 21:00 Room Air 10/31/17 20:00 98.4 87 20 164/70 (101) 91 98.4 10/31/17 20:00 78 10/31/17 19:53 80 20 100 Room Air 21 10/31/17 19:53 21 10/31/17 19:43 78 18 99 Room Air 21 10/31/17 19:42 73 22 Nasal Cannula 2.0 28 Intake and Output 10/31/17 11/01/17 19:00 07:00 Intake Total 300 ml 367.9 ml Balance 300 ml 367.9 ml Intake Oral 300 ml 240 ml IV Total 127.9 ml # Voids 5 3 Laboratory Tests 11/01/17 05:20: White Blood Count 15.7H, Red Blood Count 3.90L, Hemoglobin 11.1L, Hematocrit 34.3L, Mean Corpuscular Volume 88, Mean Corpuscular Hemoglobin 28.5, Mean Corpuscular Hemoglobin Concent 32.5, Red Cell Distribution Width 13.6, Platelet Count 268, Mean Platelet Volume 7.1, Neutrophils (%) (Auto) 73.9, Lymphocytes (% ) (Auto) 15.4L, Monocytes (%) (Auto) 6.1, Eosinophils (%) (Auto) 3.1H, Basophils (%) (Auto) 1.4, Sodium Level 139, Potassium Level 4.2, Chloride Level 104, Carbon Dioxide Level 27, Anion Gap 8, Blood Urea Nitrogen 15, Creatinine 1.1, Estimat Glomerular Filtration Rate , Glucose Level 91, Calcium Level 9.3 Height (Feet): 5 Height (Inches): 8.00 Weight (Pounds): 228 Respiratory/Chest: lungs clear Abdomen: non tender Nia Valdez MD Nov 01, 2017 16:46
--- NOTE | 2017-11-01 19:16 | Pulmonology Progress Note ---
Assessment/Plan Problems: (1) Pneumonia (2) UTI (urinary tract infection) (3) CHF (congestive heart failure) (4) jail resident (5) Atrial fibrillation (6) Diabetes Assessment/Plan -Optimize pulmonary hygiene/mobilize as tolerated -PRN O2 -PRN ATROVENT ONLY HHN's -Abx per ID (Zosyn & Doxy), F/U Cx's -Infiltrates need to be followed to resolution -Diet per [facility] with STRICT aspiration precautions, VSS ordered -Monitor volumes, continue PO Lasix -DVT Px: Hep SQ -FC Subjective Allergies: Coded Allergies: CODEINE (Verified Allergy, Unknown, 10/31/17) SULFA (SULFONAMIDE ANTIBIOTICS) (Verified Allergy, Unknown, 10/31/17) Subjective AFVSS, stable on RA, + cough, less SOB, no F/C, [facility] eval noted Objective Last 24 Hour Vital Signs Date Time Temp Pulse Resp B/P (MAP) Pulse Ox O2 Delivery O2 Flow Rate FiO2 11/01/17 16:00 97.3 63 20 158/66 (96) 97 97.3 11/01/17 16:00 65 11/01/17 13:27 78 20 98 Room Air 21 11/01/17 13:27 21 11/01/17 12:00 98.1 63 20 154/67 (96) 95 98.1 11/01/17 12:00 62 11/01/17 09:15 69 163/50 11/01/17 09:00 Room Air 11/01/17 08:05 Nasal Cannula 11/01/17 08:00 77 11/01/17 08:00 98.4 69 20 163/50 (87) 96 98.4 11/01/17 06:34 158/61 (93) 11/01/17 04:00 98.4 69 19 171/60 (97) 92 98.4 11/01/17 04:00 69 11/01/17 00:00 98.2 67 20 158/59 (92) 96 98.2 11/01/17 00:00 67 10/31/17 21:32 87 164/70 10/31/17 21:00 Room Air 10/31/17 20:00 98.4 87 20 164/70 (101) 91 98.4 10/31/17 20:00 78 10/31/17 19:53 80 20 100 Room Air 21 10/31/17 19:53 21 10/31/17 19:43 78 18 99 Room Air 21 10/31/17 19:42 73 22 Nasal Cannula 2.0 28 Intake and Output 10/31/17 11/01/17 19:00 07:00 Intake Total 300 ml 367.9 ml Balance 300 ml 367.9 ml Intake Oral 300 ml 240 ml IV Total 127.9 ml # Voids 5 3 General Appearance: WD/WN, no acute distress HEENT: normocephalic, atraumatic, anicteric, mucous membranes moist Respiratory/Chest: chest wall non-tender, no respiratory distress, no accessory muscle use, rhonchi - @ R base Cardiovascular: normal peripheral pulses, normal rate, regular rhythm Abdomen: normal bowel sounds, soft, non tender, no organomegaly, non distended , no mass Extremities: no cyanosis, no clubbing, other - EMERITA Microbiology Date/Time Source Procedure Growth Status 10/31/17 23:19 Nasal Nares Influenza Types A,B Antigen (GELY) - Final Complete 10/31/17 13:35 Sputum Gram Stain - Final Resulted 10/31/17 13:35 Sputum Sputum Culture Pending Resulted 10/31/17 06:00 Urine,Clean Catch Urine Culture - Preliminary Gram Negative Bacillus 1 Resulted 10/31/17 07:29 Rectum Received Laboratory Tests 11/01/17 05:20: White Blood Count 15.7H, Red Blood Count 3.90L, Hemoglobin 11.1L, Hematocrit 34.3L, Mean Corpuscular Volume 88, Mean Corpuscular Hemoglobin 28.5, Mean Corpuscular Hemoglobin Concent 32.5, Red Cell Distribution Width 13.6, Platelet Count 268, Mean Platelet Volume 7.1, Neutrophils (%) (Auto) 73.9, Lymphocytes (% ) (Auto) 15.4L, Monocytes (%) (Auto) 6.1, Eosinophils (%) (Auto) 3.1H, Basophils (%) (Auto) 1.4, Sodium Level 139, Potassium Level 4.2, Chloride Level 104, Carbon Dioxide Level 27, Anion Gap 8, Blood Urea Nitrogen 15, Creatinine 1.1, Estimat Glomerular Filtration Rate , Glucose Level 91, Calcium Level 9.3 Current Medications Medications (Trade) Dose Ordered Sig/Renetta Route PRN Reason Start Time Stop Time Status Last Admin Dose Admin Acetaminophen (Tylenol) 500 mg Q6H PRN ORAL Mild Pain/Temp > 100.5 10/31/17 10:45 11/30/17 10:44 11/01/17 15:05 Acetaminophen/ Hydrocodone Bitart ([place] 5/325) 1 tab Q8H PRN ORAL For Pain 10/31/17 10:45 11/07/17 10:44 11/01/17 09:25 Amiodarone HCl (Cordarone) 200 mg DAILY ORAL 10/31/17 11:00 11/30/17 10:59 11/01/17 09:15 Aspirin (Ecotrin) 325 mg DAILY ORAL 10/31/17 11:00 11/30/17 10:59 11/01/17 09:15 Carvedilol (Coreg) 12.5 mg EVERY 12 HOURS ORAL 10/31/17 21:00 11/30/17 20:59 11/01/17 09:15 Dextrose (Dextrose 50%) 25 ml STAT PRN IV Hypoglycemia 10/31/17 10:30 11/30/17 10:29 Dextrose (Dextrose 50%) 50 ml STAT PRN IV Hypoglycemia 10/31/17 10:30 11/30/17 10:29 Doxycycline Monohydrate (Vibramycin) 100 mg EVERY 12 HOURS ORAL 10/31/17 21:00 11/07/17 20:59 11/01/17 09:15 Ferrous Sulfate (Feosol) 325 mg TWICE A DAY ORAL 10/31/17 11:00 11/30/17 10:59 11/01/17 17:16 Furosemide (Lasix) 20 mg DAILY ORAL 11/01/17 09:00 12/01/17 08:59 11/01/17 09:15 Gabapentin (Neurontin) 100 mg Q8HR ORAL 10/31/17 14:00 11/30/17 13:59 11/01/17 15:05 Glipizide (Glucotrol) 5 mg DAILY ORAL 10/31/17 11:00 11/30/17 10:59 11/01/17 09:15 Guaifenesin/ Dextromethorphan (Robitussin DM Syrup) 10 ml Q4H PRN ORAL For Cough 10/31/17 15:00 11/30/17 14:59 Insulin Aspart (NovoLOG) AC+HS SUBQ 10/31/17 11:30 8/21/18 11:29 Ipratropium [place] (Atrovent) 500 mcg Q6H PRN HHN Shortness of Breath 10/31/17 12:00 11/05/17 11:59 11/01/17 13:29 Loperamide HCl (Imodium) 2 mg Q8H PRN ORAL Diarrhea 10/31/17 10:45 11/30/17 10:44 Metformin HCl (Glucophage) 850 mg BID ORAL 10/31/17 18:00 11/30/17 17:59 11/01/17 17:16 Pantoprazole (Protonix) 40 mg EVERY 12 HOURS ORAL 10/31/17 21:00 11/30/17 20:59 11/01/17 09:15 Piperacillin Sod/ Tazobactam Sod 3.375 gm/Dextrose 110 ml @ 27.5 mls/hr Q8HR IVPB 10/31/17 14:00 11/07/17 13:59 11/01/17 15:05 Potassium Chloride (K-Dur) 20 meq DAILY ORAL 10/31/17 14:00 11/30/17 13:59 11/01/17 09:16 Sertraline HCl (Zoloft) 25 mg DAILY ORAL 10/31/17 11:00 11/30/17 10:59 11/01/17 09:16 Camacho Briones MD Nov 01, 2017 19:16
[2017-11-01] MEDS: Heparin 5000 units/ml inj SUBQ SCH (21:00)
[2017-11-02] VITALS: BP 145/58
[2017-11-02 04:00] VITALS: BP 185/64
[2017-11-02] MEDS: Norco 5mg/325mg tab ORAL PRN ×3 (06:21→21:11)
[2017-11-02] MEDS: Piperacillin/Tazobactam 3.375 GM in D5W 110 ML IVPB SCH ×3 (06:21→21:04)
[2017-11-02] MEDS: NovoLOG Insulin Flexpen SUBQ SCH ×3 (06:32→21:00)
[2017-11-02 07:24] LABS: BASOPHILS % (AUTO) 1.9 % (0.0-2.0); EOSINOPHILS % (AUTO) 2.8 % (0.0-3.0); HEMATOCRIT 34.9 % (37.0-47.0); HEMOGLOBIN 11.2 G/DL (12.0-16.0); LYMPHOCYTES % (AUTO) 14.4 % (20.0-45.0); MEAN CORPUSCULAR VOLUME 88 FL (80-99); MONOCYTES % (AUTO) 7.2 % (1.0-10.0); NEUTROPHILS % (AUTO) 73.7 % (45.0-75.0); PLATELET COUNT 266 K/UL (150-450); RED BLOOD COUNT 3.96 M/UL (4.20-5.40); RED CELL DISTRIBUTION WIDTH 13.5 % (11.6-14.8); WHITE BLOOD COUNT 14.1 K/UL (4.8-10.8)
[2017-11-02 07:50] LABS: ANION GAP 10 mmol/L (5-15); BLOOD UREA NITROGEN 12 mg/dL (7-18); CALCIUM 9.1 MG/DL (8.5-10.1); CARBON DIOXIDE 26 MMOL/L (21-32); CHLORIDE 102 MMOL/L (98-107); CREATININE 1.1 MG/DL (0.55-1.30); POTASSIUM 4.1 MMOL/L (3.5-5.1); SODIUM 138 MMOL/L (136-145)
[2017-11-02 08:00] VITALS: BP 180/66
--- NOTE | 2017-11-02 08:00 | Pulmonology Progress Note ---
Assessment/Plan Problems: (1) Pneumonia (2) UTI (urinary tract infection) (3) CHF (congestive heart failure) (4) [facility] resident (5) Atrial fibrillation (6) Diabetes Assessment/Plan -Optimize pulmonary hygiene/mobilize as tolerated -PRN O2 -PRN ATROVENT ONLY HHN's -Abx per ID (Zosyn & Doxy), F/U Cx's -Infiltrates need to be followed to resolution, repeat CXR in a few days -Diet per [employer] with STRICT aspiration precautions, VSS ordered -Monitor volumes, continue PO Lasix -DVT Px: Hep SQ -FC Subjective Allergies: Coded Allergies: CODEINE (Verified Allergy, Unknown, 10/31/17) SULFA (SULFONAMIDE ANTIBIOTICS) (Verified Allergy, Unknown, 10/31/17) Subjective AFVSS, stable on RA, less cough, less SOB, no F/C Objective Last 24 Hour Vital Signs Date Time Temp Pulse Resp B/P (MAP) Pulse Ox O2 Delivery O2 Flow Rate FiO2 11/02/17 04:00 98.5 71 17 185/64 (104) 95 98.5 11/02/17 04:00 74 11/02/17 00:00 98.4 67 18 145/58 (87) 96 98.4 11/02/17 00:00 66 11/01/17 21:35 91 170/55 11/01/17 21:00 Room Air Room Air 11/01/17 20:00 98.6 70 16 170/55 (93) 95 98.6 11/01/17 20:00 70 11/01/17 19:55 65 20 Nasal Cannula 2.0 28 11/01/17 16:00 97.3 63 20 158/66 (96) 97 97.3 11/01/17 16:00 65 11/01/17 13:27 78 20 98 Room Air 21 11/01/17 13:27 21 11/01/17 12:00 98.1 63 20 154/67 (96) 95 98.1 11/01/17 12:00 62 11/01/17 09:15 69 163/50 11/01/17 09:00 Room Air 11/01/17 08:05 Nasal Cannula Intake and Output 11/01/17 11/02/17 19:00 07:00 Intake Total 600 ml 480 ml Balance 600 ml 480 ml Intake Oral 600 ml 480 ml # Voids 5 5 # Bowel Movements 1 General Appearance: no acute distress HEENT: normocephalic, atraumatic, anicteric, mucous membranes moist Respiratory/Chest: chest wall non-tender, lungs clear, normal breath sounds, no respiratory distress, no accessory muscle use Cardiovascular: normal peripheral pulses, normal rate, regular rhythm Abdomen: normal bowel sounds, soft, non tender, no organomegaly, non distended , no mass Extremities: no cyanosis, no clubbing, no edema Microbiology Date/Time Source Procedure Growth Status 10/31/17 05:40 Blood Blood Culture - Preliminary NO GROWTH AFTER 24 HOURS Resulted 10/31/17 05:25 Blood Blood Culture - Preliminary NO GROWTH AFTER 24 HOURS Resulted 10/31/17 23:19 Nasal Nares Influenza Types A,B Antigen (GELY) - Final Complete 10/31/17 13:35 Sputum Gram Stain - Final Resulted 10/31/17 13:35 Sputum Sputum Culture Pending Resulted 10/31/17 06:00 Urine,Clean Catch Urine Culture - Preliminary Gram Negative Bacillus 1 Resulted 10/31/17 07:29 Rectum Received Laboratory Tests 11/02/17 06:41: White Blood Count 14.1H, Red Blood Count 3.96L, Hemoglobin 11.2L, Hematocrit 34.9L, Mean Corpuscular Volume 88, Mean Corpuscular Hemoglobin 28.2, Mean Corpuscular Hemoglobin Concent 32.0, Red Cell Distribution Width 13.5, Platelet Count 266, Mean Platelet Volume 7.1, Neutrophils (%) (Auto) 73.7, Lymphocytes (% ) (Auto) 14.4L, Monocytes (%) (Auto) 7.2, Eosinophils (%) (Auto) 2.8, Basophils (%) (Auto) 1.9, Sodium Level 138, Potassium Level 4.1, Chloride Level 102, Carbon Dioxide Level 26, Anion Gap 10, Blood Urea Nitrogen 12, Creatinine 1.1, Estimat Glomerular Filtration Rate , Glucose Level 134H, Calcium Level 9.1 Current Medications Medications (Trade) Dose Ordered Sig/Renetta Route PRN Reason Start Time Stop Time Status Last Admin Dose Admin Acetaminophen (Tylenol) 500 mg Q6H PRN ORAL Mild Pain/Temp > 100.5 10/31/17 10:45 11/30/17 10:44 11/01/17 15:05 Acetaminophen/ Hydrocodone Bitart ([place] 5/325) 1 tab Q8H PRN ORAL For Pain 10/31/17 10:45 11/07/17 10:44 11/02/17 06:21 Amiodarone HCl (Cordarone) 200 mg DAILY ORAL 10/31/17 11:00 11/30/17 10:59 11/01/17 09:15 Amlodipine Besylate (Norvasc) 10 mg ONCE ORAL 11/02/17 09:00 11/02/17 10:30 Aspirin (Ecotrin) 325 mg DAILY ORAL 10/31/17 11:00 11/30/17 10:59 11/01/17 09:15 Carvedilol (Coreg) 12.5 mg EVERY 12 HOURS ORAL 10/31/17 21:00 11/30/17 20:59 11/01/17 21:35 Dextrose (Dextrose 50%) 25 ml STAT PRN IV Hypoglycemia 10/31/17 10:30 11/30/17 10:29 Dextrose (Dextrose 50%) 50 ml STAT PRN IV Hypoglycemia 10/31/17 10:30 11/30/17 10:29 Doxycycline Monohydrate (Vibramycin) 100 mg EVERY 12 HOURS ORAL 10/31/17 21:00 11/07/17 20:59 11/01/17 21:34 Ferrous Sulfate (Feosol) 325 mg TWICE A DAY ORAL 10/31/17 11:00 11/30/17 10:59 11/01/17 17:16 Furosemide (Lasix) 20 mg DAILY ORAL 11/01/17 09:00 12/01/17 08:59 11/01/17 09:15 Gabapentin (Neurontin) 100 mg Q8HR ORAL 10/31/17 14:00 11/30/17 13:59 11/02/17 06:21 Glipizide (Glucotrol) 5 mg DAILY ORAL 10/31/17 11:00 11/30/17 10:59 11/01/17 09:15 Guaifenesin/ Dextromethorphan (Robitussin DM Syrup) 10 ml Q4H PRN ORAL For Cough 10/31/17 15:00 11/30/17 14:59 11/02/17 02:42 Heparin Sodium (Porcine) (Heparin 5000 units/ml) 5,000 units EVERY 12 HOURS SUBQ 11/01/17 21:00 12/01/17 20:59 Insulin Aspart (NovoLOG) AC+HS SUBQ 10/31/17 11:30 11/30/17 11:29 11/02/17 06:32 Ipratropium [place] (Atrovent) 500 mcg Q6H PRN HHN Shortness of Breath 10/31/17 12:00 11/05/17 11:59 11/01/17 13:29 Loperamide HCl (Imodium) 2 mg Q8H PRN ORAL Diarrhea 10/31/17 10:45 11/30/17 10:44 Metformin HCl (Glucophage) 850 mg BID ORAL 10/31/17 18:00 11/30/17 17:59 11/01/17 17:16 Pantoprazole (Protonix) 40 mg EVERY 12 HOURS ORAL 10/31/17 21:00 11/30/17 20:59 11/01/17 21:34 Piperacillin Sod/ Tazobactam Sod 3.375 gm/Dextrose 110 ml @ 27.5 mls/hr Q8HR IVPB 10/31/17 14:00 11/07/17 13:59 11/02/17 06:21 Potassium Chloride (K-Dur) 20 meq DAILY ORAL 10/31/17 14:00 11/30/17 13:59 11/01/17 09:16 Sertraline HCl (Zoloft) 25 mg DAILY ORAL 10/31/17 11:00 11/30/17 10:59 11/01/17 09:16 Camacho Briones MD Nov 02, 2017 08:00
[2017-11-02] MEDS: Carvedilol 12.5mg tab ORAL SCH ×2 (08:18→20:58)
[2017-11-02] MEDS: Aspirin EC 325mg tab ORAL SCH (08:18)
[2017-11-02] MEDS: Amiodarone 200mg tab ORAL SCH (08:18)
[2017-11-02] MEDS: Sertraline 50mg tab ORAL SCH (08:20)
[2017-11-02] MEDS: GlipiZIDE 5mg tab ORAL SCH (08:20)
[2017-11-02] MEDS: Heparin 5000 units/ml inj SUBQ SCH ×2 (08:21→21:08)
[2017-11-02] MEDS ORDERED: HydrALAZINE 25mg tab ORAL PRN (08:30)
--- NOTE | 2017-11-02 10:35 | Consultation ---
Consult Note Consult Note asked to evaluate for management of uncontrolled HTN Current conditions: patient interviewed, examined and data reviewed (1) Pneumonia (2) UTI (urinary tract infection) (3) CHF (congestive heart failure) (4) care home resident (5) Atrial fibrillation (6) Diabetes Assessment/Plan HTN DM Anemia Pneumonia At [facility] Hydralazine 2D echo Anemia debora BS check Ghanshyam Negrete MD Nov 02, 2017 10:35
[2017-11-02 11:11] LABS: FERRITIN 81 NG/ML (8-388)
[2017-11-02 11:28] LABS: % IRON SATURATION 7 % (15-50); IRON 20 ug/dL (50-175); TOTAL IRON BINDING CAPACITY 294 ug/dL (250-450)
[2017-11-02 11:35] LABS: ALANINE AMINOTRANSFERASE 16 U/L (12-78); ALBUMIN 3.1 G/DL (3.4-5.0); ALKALINE PHOSPHATASE 77 U/L (46-116); ASPARTATE AMINO TRANSFERASE 22 U/L (15-37); BILIRUBIN,DIRECT 0.2 MG/DL (0.0-0.3); BILIRUBIN,TOTAL 0.5 MG/DL (0.2-1.0); CHOLESTEROL 163 MG/DL (< 200); HDL CHOLESTEROL 59 MG/DL (40-60); TRIGLYCERIDES 75 MG/DL (30-150)
[2017-11-02 12:00] VITALS: BP 166/59
--- NOTE | 2017-11-02 13:28 | Infectious Diseases Prog Note ---
Assessment/Plan Assessment/Plan A; Pneumonia with klebsiella CHF DM Depression Obesity P; Continue Zosyn & Doxycycline will f/u cultures Subjective ROS Limited/Unobtainable: No Constitutional: Reports: no symptoms Respiratory: Reports: productive cough Cardiovascular: Reports: no symptoms Gastrointestinal/Abdominal: Reports: no symptoms Genitourinary: Reports: no symptoms Allergies: Coded Allergies: CODEINE (Verified Allergy, Unknown, 10/31/17) SULFA (SULFONAMIDE ANTIBIOTICS) (Verified Allergy, Unknown, 10/31/17) Objective Vital Signs Last 24 Hour Vital Signs Date Time Temp Pulse Resp B/P (MAP) Pulse Ox O2 Delivery O2 Flow Rate FiO2 11/02/17 12:00 64 11/02/17 12:00 97.2 67 20 166/59 (94) 97 97.2 11/02/17 09:00 74 185/64 11/02/17 09:00 Room Air Room Air 11/02/17 08:18 74 185/64 11/02/17 08:00 69 11/02/17 08:00 74 20 Nasal Cannula 2.0 28 11/02/17 08:00 98.4 11/02/17 08:00 98.4 67 18 180/66 (104) 95 98.4 11/02/17 04:00 98.5 71 17 185/64 (104) 95 98.5 11/02/17 04:00 74 11/02/17 00:00 98.4 67 18 145/58 (87) 96 98.4 11/02/17 00:00 66 11/01/17 21:35 91 170/55 11/01/17 21:00 Room Air Room Air 11/01/17 20:00 98.6 70 16 170/55 (93) 95 98.6 11/01/17 20:00 70 11/01/17 19:55 65 20 Nasal Cannula 2.0 28 11/01/17 16:00 97.3 63 20 158/66 (96) 97 97.3 11/01/17 16:00 65 11/01/17 13:27 78 20 98 Room Air 21 11/01/17 13:27 21 Height (Feet): 5 Height (Inches): 8.00 Weight (Pounds): 228 General Appearance: no acute distress HEENT: mucous membranes moist Respiratory/Chest: lungs clear Cardiovascular: normal rate Abdomen: soft, non tender Extremities: other - edema decreasing Neurologic/Psychiatric: alert, oriented x 3, responsive Microbiology Date/Time Source Procedure Growth Status 10/31/17 05:40 Blood Blood Culture - Preliminary NO GROWTH AFTER 24 HOURS Resulted 10/31/17 05:25 Blood Blood Culture - Preliminary NO GROWTH AFTER 24 HOURS Resulted 10/31/17 23:19 Nasal Nares Influenza Types A,B Antigen (GELY) - Final Complete 10/31/17 13:35 Sputum Gram Stain - Final Complete 10/31/17 13:35 Sputum Culture - Final Klebsiella Pneumoniae Usual Respiratory Ana Complete 10/31/17 07:29 Nasal Nares MRSA Culture - Final NO METHICILLIN RESISTANT STAPH AUREUS... Complete 10/31/17 06:00 Urine,Clean Catch Urine Culture - Preliminary Gram Negative Bacillus 1 Resulted 10/31/17 07:29 Rectum - Final NO CARBAPENEM-RESISTANT ENTEROBACTERI... Complete 10/31/17 07:24 Rectum VRE Culture - Final NO VANCOMYCIN RESISTANT ENTEROCOCCUS ... Complete Laboratory Tests Test 11/02/17 06:41 White Blood Count 14.1 K/UL (4.8-10.8) H Red Blood Count 3.96 M/UL (4.20-5.40) L Hemoglobin 11.2 G/DL (12.0-16.0) L Hematocrit 34.9 % (37.0-47.0) L Mean Corpuscular Volume 88 FL (80-99) Mean Corpuscular Hemoglobin 28.2 PG (27.0-31.0) Mean Corpuscular Hemoglobin Concent 32.0 G/DL (32.0-36.0) Red Cell Distribution Width 13.5 % (11.6-14.8) Platelet Count 266 K/UL (150-450) Mean Platelet Volume 7.1 FL (6.5-10.1) Neutrophils (%) (Auto) 73.7 % (45.0-75.0) Lymphocytes (%) (Auto) 14.4 % (20.0-45.0) L Monocytes (%) (Auto) 7.2 % (1.0-10.0) Eosinophils (%) (Auto) 2.8 % (0.0-3.0) Basophils (%) (Auto) 1.9 % (0.0-2.0) Sodium Level 138 MMOL/L (136-145) Potassium Level 4.1 MMOL/L (3.5-5.1) Chloride Level 102 MMOL/L (98-107) Carbon Dioxide Level 26 MMOL/L (21-32) Anion Gap 10 mmol/L (5-15) Blood Urea Nitrogen 12 mg/dL (7-18) Creatinine 1.1 MG/DL (0.55-1.30) Estimat Glomerular Filtration Rate mL/min (>60) Glucose Level 134 MG/DL (74-106) H Hemoglobin A1c 6.1 % (4.3-6.0) H Calcium Level 9.1 MG/DL (8.5-10.1) Phosphorus Level 3.0 MG/DL (2.5-4.9) Magnesium Level 1.9 MG/DL (1.8-2.4) Iron Level 20 ug/dL (50-175) L Total Iron Binding Capacity 294 ug/dL (250-450) Percent Iron Saturation 7 % (15-50) L Unsaturated Iron Binding 274 ug/dL (112-346) Ferritin 81 NG/ML (8-388) Total Bilirubin 0.5 MG/DL (0.2-1.0) Direct Bilirubin 0.2 MG/DL (0.0-0.3) Aspartate Amino Transf (AST/SGOT) 22 U/L (15-37) Alanine Aminotransferase (ALT/SGPT) 16 U/L (12-78) Alkaline Phosphatase 77 U/L (46-116) Total Protein 8.1 G/DL (6.4-8.2) Albumin 3.1 G/DL (3.4-5.0) L Triglycerides Level 75 MG/DL (30-150) Cholesterol Level 163 MG/DL (< 200) LDL Cholesterol 101 mg/dL (<100) H HDL Cholesterol 59 MG/DL (40-60) Cholesterol/HDL Ratio 2.8 (3.3-4.4) L Vitamin B12 Level 296 PG/ML (193-986) Folate 7.5 NG/ML (8.6-58.9) L Current Medications Medications (Trade) Dose Ordered Sig/Renetta Route PRN Reason Start Time Stop Time Status Last Admin Dose Admin Acetaminophen (Tylenol) 500 mg Q6H PRN ORAL Mild Pain/Temp > 100.5 10/31/17 10:45 11/30/17 10:44 11/01/17 15:05 Acetaminophen/ Hydrocodone Bitart ([place] 5/325) 1 tab Q8H PRN ORAL For Pain 10/31/17 10:45 11/07/17 10:44 11/02/17 06:21 Amiodarone HCl (Cordarone) 200 mg DAILY ORAL 10/31/17 11:00 11/30/17 10:59 11/02/17 08:18 Amlodipine Besylate (Norvasc) 10 mg DAILY ORAL 11/03/17 09:00 12/03/17 08:59 Aspirin (Ecotrin) 325 mg DAILY ORAL 10/31/17 11:00 11/30/17 10:59 11/02/17 08:18 Carvedilol (Coreg) 12.5 mg EVERY 12 HOURS ORAL 10/31/17 21:00 11/30/17 20:59 11/02/17 08:18 Dextrose (Dextrose 50%) 25 ml STAT PRN IV Hypoglycemia 10/31/17 10:30 11/30/17 10:29 Dextrose (Dextrose 50%) 50 ml STAT PRN IV Hypoglycemia 10/31/17 10:30 11/30/17 10:29 Doxycycline Monohydrate (Vibramycin) 100 mg EVERY 12 HOURS ORAL 10/31/17 21:00 11/07/17 20:59 11/02/17 08:18 Furosemide (Lasix) 20 mg DAILY ORAL 11/01/17 09:00 12/01/17 08:59 11/02/17 08:20 Gabapentin (Neurontin) 100 mg Q8HR ORAL 10/31/17 14:00 11/30/17 13:59 11/02/17 06:21 Guaifenesin/ Dextromethorphan (Robitussin DM Syrup) 10 ml Q4H PRN ORAL For Cough 10/31/17 15:00 11/30/17 14:59 11/02/17 02:42 Heparin Sodium (Porcine) (Heparin 5000 units/ml) 5,000 units EVERY 12 HOURS SUBQ 11/01/17 21:00 12/01/17 20:59 11/02/17 08:21 Hydralazine HCl (Apresoline) 25 mg Q4H PRN ORAL BP over 160 syst 11/02/17 08:30 12/02/17 08:29 Insulin Aspart (NovoLOG) AC+HS SUBQ 10/31/17 11:30 11/30/17 11:29 11/02/17 06:32 Ipratropium [place] (Atrovent) 500 mcg Q6H PRN HHN Shortness of Breath 10/31/17 12:00 11/05/17 11:59 11/01/17 13:29 Loperamide HCl (Imodium) 2 mg Q8H PRN ORAL Diarrhea 10/31/17 10:45 11/30/17 10:44 Metformin HCl (Glucophage) 850 mg BID ORAL 10/31/17 18:00 11/30/17 17:59 11/02/17 08:18 Pantoprazole (Protonix) 40 mg EVERY 12 HOURS ORAL 10/31/17 21:00 11/30/17 20:59 11/02/17 08:18 Piperacillin Sod/ Tazobactam Sod 3.375 gm/Dextrose 110 ml @ 27.5 mls/hr Q8HR IVPB 10/31/17 14:00 11/07/17 13:59 11/02/17 06:21 Potassium Chloride (K-Dur) 20 meq DAILY ORAL 10/31/17 14:00 11/30/17 13:59 11/02/17 08:20 Sertraline HCl (Zoloft) 25 mg DAILY ORAL 10/31/17 11:00 11/30/17 10:59 11/02/17 08:20 Osito Carney MD Nov 02, 2017 13:28
--- NOTE | 2017-11-02 15:13 | General Progress Note ---
Assessment/Plan Assessment/Plan MDD Anxiety d/o -zoloft -provided ro/st Subjective Date patient seen: Nov 02, 2017 Neurologic/Psychiatric: Reports: anxiety, depressed, emotional problems Allergies: Coded Allergies: CODEINE (Verified Allergy, Unknown, 10/31/17) SULFA (SULFONAMIDE ANTIBIOTICS) (Verified Allergy, Unknown, 10/31/17) Objective Last 24 Hour Vital Signs Date Time Temp Pulse Resp B/P (MAP) Pulse Ox O2 Delivery O2 Flow Rate FiO2 11/02/17 14:55 97.2 11/02/17 12:00 64 11/02/17 12:00 97.2 67 20 166/59 (94) 97 97.2 11/02/17 09:00 74 185/64 11/02/17 09:00 Room Air Room Air 11/02/17 08:18 74 185/64 11/02/17 08:00 69 11/02/17 08:00 74 20 Nasal Cannula 2.0 28 11/02/17 08:00 98.4 11/02/17 08:00 98.4 67 18 180/66 (104) 95 98.4 11/02/17 04:00 98.5 71 17 185/64 (104) 95 98.5 11/02/17 04:00 74 11/02/17 00:00 98.4 67 18 145/58 (87) 96 98.4 11/02/17 00:00 66 11/01/17 21:35 91 170/55 11/01/17 21:00 Room Air Room Air 11/01/17 20:00 98.6 70 16 170/55 (93) 95 98.6 11/01/17 20:00 70 11/01/17 19:55 65 20 Nasal Cannula 2.0 28 11/01/17 16:00 97.3 63 20 158/66 (96) 97 97.3 11/01/17 16:00 65 Intake and Output 11/01/17 11/02/17 19:00 07:00 Intake Total 600 ml 480 ml Balance 600 ml 480 ml Intake Oral 600 ml 480 ml # Voids 5 5 # Bowel Movements 1 Laboratory Tests 11/02/17 06:41: White Blood Count 14.1H, Red Blood Count 3.96L, Hemoglobin 11.2L, Hematocrit 34.9L, Mean Corpuscular Volume 88, Mean Corpuscular Hemoglobin 28.2, Mean Corpuscular Hemoglobin Concent 32.0, Red Cell Distribution Width 13.5, Platelet Count 266, Mean Platelet Volume 7.1, Neutrophils (%) (Auto) 73.7, Lymphocytes (% ) (Auto) 14.4L, Monocytes (%) (Auto) 7.2, Eosinophils (%) (Auto) 2.8, Basophils (%) (Auto) 1.9, Sodium Level 138, Potassium Level 4.1, Chloride Level 102, Carbon Dioxide Level 26, Anion Gap 10, Blood Urea Nitrogen 12, Creatinine 1.1, Estimat Glomerular Filtration Rate , Glucose Level 134H, Hemoglobin A1c 6.1H, Calcium Level 9.1, Phosphorus Level 3.0, Magnesium Level 1.9, Iron Level 20L, Total Iron Binding Capacity 294, Percent Iron Saturation 7L, Unsaturated Iron Binding 274, Ferritin 81, Total Bilirubin 0.5, Direct Bilirubin 0.2, Aspartate Amino Transf (AST/SGOT) 22, Alanine Aminotransferase (ALT/SGPT) 16, Alkaline Phosphatase 77, Total Protein 8.1, Albumin 3.1L, Triglycerides Level 75, Cholesterol Level 163, LDL Cholesterol 101H, HDL Cholesterol 59, Cholesterol/ HDL Ratio 2.8L, Vitamin B12 Level 296, Folate 7.5L Height (Feet): 5 Height (Inches): 8.00 Weight (Pounds): 228 General Appearance: no apparent distress, alert Neurologic: oriented x 3, responsive, depressed affect Nasrin Fischer MD Nov 02, 2017 15:13
[2017-11-02] MEDS ORDERED: Zolpidem 5mg tab ORAL PRN (15:15)
[2017-11-02 16:00] VITALS: BP 175/62
[2017-11-02] MEDS ORDERED: Ipratropium 0.02% Inh Soln 2.5ml UD HHN PRN (18:00)
[2017-11-02] MEDS ORDERED: Acetaminophen 500mg (ES) tab ORAL PRN (18:30)
--- NOTE | 2017-11-02 18:51 | General Progress Note ---
Assessment/Plan Problem List: (1) Pneumonia ICD Codes: J18.9 - Pneumonia, unspecified organism SNOMED: 622805929 (2) Acute exacerbation of CHF (congestive heart failure) ICD Codes: I50.9 - Heart failure, unspecified SNOMED: 86147946 Qualifiers: Qualified Codes: I50.9 - Heart failure, unspecified Status: progressing Assessment/Plan persistent leukocytosis is improving transfer to [facility] surg no chill pna chf Subjective ROS Limited/Unobtainable: Yes Allergies: Coded Allergies: CODEINE (Verified Allergy, Unknown, 10/31/17) SULFA (SULFONAMIDE ANTIBIOTICS) (Verified Allergy, Unknown, 10/31/17) Subjective cough Objective Last 24 Hour Vital Signs Date Time Temp Pulse Resp B/P (MAP) Pulse Ox O2 Delivery O2 Flow Rate FiO2 11/02/17 16:00 68 11/02/17 16:00 98.2 62 20 175/62 (99) 95 98.2 11/02/17 14:55 97.2 11/02/17 12:00 64 11/02/17 12:00 97.2 67 20 166/59 (94) 97 97.2 11/02/17 09:00 74 185/64 11/02/17 09:00 Room Air Room Air 11/02/17 08:18 74 185/64 11/02/17 08:00 69 11/02/17 08:00 74 20 Nasal Cannula 2.0 28 11/02/17 08:00 98.4 11/02/17 08:00 98.4 67 18 180/66 (104) 95 98.4 11/02/17 04:00 98.5 71 17 185/64 (104) 95 98.5 11/02/17 04:00 74 11/02/17 00:00 98.4 67 18 145/58 (87) 96 98.4 11/02/17 00:00 66 11/01/17 21:35 91 170/55 11/01/17 21:00 Room Air Room Air 11/01/17 20:00 98.6 70 16 170/55 (93) 95 98.6 11/01/17 20:00 70 11/01/17 19:55 65 20 Nasal Cannula 2.0 28 Intake and Output 11/01/17 11/02/17 19:00 07:00 Intake Total 600 ml 480 ml Balance 600 ml 480 ml Intake Oral 600 ml 480 ml # Voids 5 5 # Bowel Movements 1 Laboratory Tests 11/02/17 06:41: White Blood Count 14.1H, Red Blood Count 3.96L, Hemoglobin 11.2L, Hematocrit 34.9L, Mean Corpuscular Volume 88, Mean Corpuscular Hemoglobin 28.2, Mean Corpuscular Hemoglobin Concent 32.0, Red Cell Distribution Width 13.5, Platelet Count 266, Mean Platelet Volume 7.1, Neutrophils (%) (Auto) 73.7, Lymphocytes (% ) (Auto) 14.4L, Monocytes (%) (Auto) 7.2, Eosinophils (%) (Auto) 2.8, Basophils (%) (Auto) 1.9, Sodium Level 138, Potassium Level 4.1, Chloride Level 102, Carbon Dioxide Level 26, Anion Gap 10, Blood Urea Nitrogen 12, Creatinine 1.1, Estimat Glomerular Filtration Rate , Glucose Level 134H, Hemoglobin A1c 6.1H, Calcium Level 9.1, Phosphorus Level 3.0, Magnesium Level 1.9, Iron Level 20L, Total Iron Binding Capacity 294, Percent Iron Saturation 7L, Unsaturated Iron Binding 274, Ferritin 81, Total Bilirubin 0.5, Direct Bilirubin 0.2, Aspartate Amino Transf (AST/SGOT) 22, Alanine Aminotransferase (ALT/SGPT) 16, Alkaline Phosphatase 77, Total Protein 8.1, Albumin 3.1L, Triglycerides Level 75, Cholesterol Level 163, LDL Cholesterol 101H, HDL Cholesterol 59, Cholesterol/ HDL Ratio 2.8L, Vitamin B12 Level 296, Folate 7.5L Height (Feet): 5 Height (Inches): 8.00 Weight (Pounds): 228 Cardiovascular: normal rate Respiratory/Chest: lungs clear Nia Valdez MD Nov 02, 2017 18:51
[2017-11-02] MEDS ORDERED: Guaifenesin/DM 10ml syrup ORAL PRN (19:00)
[2017-11-02] MEDS ORDERED: Loperamide 2mg cap ORAL PRN (19:30)
[2017-11-03] VITALS (7 sets, daily range): BP systolic 148–174; BP diastolic 51–97
[2017-11-03] MEDS: Piperacillin/Tazobactam 3.375 GM in D5W 110 ML IVPB SCH (05:11)
[2017-11-03] MEDS: NovoLOG Insulin Flexpen SUBQ SCH ×4 (06:30→20:47)
[2017-11-03 07:28] LABS: BASOPHILS % (AUTO) 2.3 % (0.0-2.0); EOSINOPHILS % (AUTO) 4.2 % (0.0-3.0); HEMATOCRIT 33.6 % (37.0-47.0); HEMOGLOBIN 10.7 G/DL (12.0-16.0); LYMPHOCYTES % (AUTO) 25.1 % (20.0-45.0); MEAN CORPUSCULAR VOLUME 89 FL (80-99); MONOCYTES % (AUTO) 6.7 % (1.0-10.0); NEUTROPHILS % (AUTO) 61.7 % (45.0-75.0); PLATELET COUNT 268 K/UL (150-450); RED BLOOD COUNT 3.79 M/UL (4.20-5.40); RED CELL DISTRIBUTION WIDTH 13.5 % (11.6-14.8); WHITE BLOOD COUNT 8.6 K/UL (4.8-10.8)
[2017-11-03 07:44] LABS: ANION GAP 8 mmol/L (5-15); BLOOD UREA NITROGEN 12 mg/dL (7-18); CALCIUM 9.2 MG/DL (8.5-10.1); CARBON DIOXIDE 26 MMOL/L (21-32); CHLORIDE 105 MMOL/L (98-107); CREATININE 1.2 MG/DL (0.55-1.30); SODIUM 139 MMOL/L (136-145)
--- NOTE | 2017-11-03 08:29 | Pulmonology Progress Note ---
Assessment/Plan Problems: (1) Pneumonia (2) UTI (urinary tract infection) (3) CHF (congestive heart failure) (4) care home resident (5) Atrial fibrillation (6) Diabetes Assessment/Plan -Optimize pulmonary hygiene/mobilize as tolerated -PRN O2 -PRN ATROVENT ONLY HHN's -Abx per ID (Zosyn & Doxy), F/U Cx's -Infiltrates need to be followed to resolution, repeat CXR ordered -Diet per [employer] with STRICT aspiration precautions, VSS ordered -Monitor volumes, continue PO Lasix -DVT Px: Hep SQ -FC Subjective Allergies: Coded Allergies: CODEINE (Verified Allergy, Unknown, 10/31/17) SULFA (SULFONAMIDE ANTIBIOTICS) (Verified Allergy, Unknown, 10/31/17) Subjective AFVSS, stable on RA, less cough and mobilizing, denies SOB, no F/C, getting OOB Objective Last 24 Hour Vital Signs Date Time Temp Pulse Resp B/P (MAP) Pulse Ox O2 Delivery O2 Flow Rate FiO2 11/03/17 04:00 98.4 61 18 158/61 (93) 98 98.4 11/03/17 00:00 97.4 56 18 167/51 (89) 96 97.4 11/02/17 21:00 Room Air Room Air 11/02/17 20:58 61 175/62 11/02/17 20:00 93 Nasal Cannula 2.0 28 11/02/17 20:00 Nasal Cannula 2.0 28 11/02/17 20:00 98.7 61 19 93 98.7 11/02/17 19:30 60 20 Nasal Cannula 2.0 28 11/02/17 16:00 68 11/02/17 16:00 98.2 62 20 175/62 (99) 95 98.2 11/02/17 14:55 97.2 11/02/17 12:00 64 11/02/17 12:00 97.2 67 20 166/59 (94) 97 97.2 11/02/17 09:00 74 185/64 11/02/17 09:00 Room Air Room Air Intake and Output 11/02/17 11/03/17 19:00 07:00 Intake Total 800 ml 2815.0 ml Balance 800 ml 2815.0 ml Intake Oral 800 ml IV Total 2815.0 ml # Voids 4 3 General Appearance: WD/WN, no acute distress HEENT: normocephalic, atraumatic, anicteric, mucous membranes moist Respiratory/Chest: chest wall non-tender, lungs clear, normal breath sounds, no respiratory distress, no accessory muscle use Cardiovascular: normal peripheral pulses, normal rate, regular rhythm Abdomen: normal bowel sounds, soft, non tender, no organomegaly, non distended , no mass Extremities: no cyanosis, no clubbing, no edema Microbiology Date/Time Source Procedure Growth Status 10/31/17 23:19 Nasal Nares Influenza Types A,B Antigen (GELY) - Final Complete 10/31/17 13:35 Sputum Gram Stain - Final Complete 10/31/17 13:35 Sputum Culture - Final Klebsiella Pneumoniae Usual Respiratory Ana Complete Laboratory Tests 11/03/17 06:50: White Blood Count 8.6, Red Blood Count 3.79L, Hemoglobin 10.7L, Hematocrit 33.6L , Mean Corpuscular Volume 89, Mean Corpuscular Hemoglobin 28.3, Mean Corpuscular Hemoglobin Concent 32.0, Red Cell Distribution Width 13.5, Platelet Count 268, Mean Platelet Volume 7.9, Neutrophils (%) (Auto) 61.7, Lymphocytes (% ) (Auto) 25.1, Monocytes (%) (Auto) 6.7, Eosinophils (%) (Auto) 4.2H, Basophils (%) (Auto) 2.3H, Sodium Level 139, Potassium Level 4.0, Chloride Level 105, Carbon Dioxide Level 26, Anion Gap 8, Blood Urea Nitrogen 12, Creatinine 1.2, Estimat Glomerular Filtration Rate , Glucose Level 110H, Calcium Level 9.2 Current Medications Medications (Trade) Dose Ordered Sig/Renetta Route PRN Reason Start Time Stop Time Status Last Admin Dose Admin Acetaminophen (Tylenol) 500 mg Q6H PRN ORAL Mild Pain/Temp > 100.5 11/02/17 18:30 11/30/17 18:29 Acetaminophen/ Hydrocodone Bitart ([place] 5/325) 1 tab Q8H PRN ORAL PAIN 4-10 11/02/17 18:45 11/07/17 10:44 11/02/17 21:11 Amiodarone HCl (Cordarone) 200 mg DAILY ORAL 11/03/17 09:00 11/30/17 10:59 Amlodipine Besylate (Norvasc) 10 mg DAILY ORAL 11/03/17 09:00 12/03/17 08:59 Aspirin (Ecotrin) 325 mg DAILY ORAL 11/03/17 09:00 11/30/17 10:59 Carvedilol (Coreg) 12.5 mg EVERY 12 HOURS ORAL 11/02/17 21:00 11/30/17 20:59 11/02/17 20:58 Cyanocobalamin (Vitamin B12) 1,000 mcg ONCE IM 11/03/17 08:30 11/03/17 09:30 Dextrose (Dextrose 50%) 25 ml STAT PRN IV Hypoglycemia 11/02/17 18:30 12/02/17 18:29 Dextrose (Dextrose 50%) 50 ml STAT PRN IV Hypoglycemia 11/03/17 18:30 11/30/17 18:29 Doxycycline Monohydrate (Vibramycin) 100 mg EVERY 12 HOURS ORAL 11/02/17 21:00 11/07/17 20:59 11/02/17 20:59 Folic Acid (Folate) 2 mg DAILY ORAL 11/03/17 09:00 12/03/17 08:59 Furosemide (Lasix) 20 mg DAILY ORAL 11/03/17 09:00 12/01/17 08:59 Gabapentin (Neurontin) 100 mg Q8HR ORAL 11/02/17 22:00 11/30/17 13:59 11/03/17 05:15 Guaifenesin/ Dextromethorphan (Robitussin DM Syrup) 10 ml Q4H PRN ORAL For Cough 11/02/17 19:00 11/30/17 14:59 11/03/17 05:16 Heparin Sodium (Porcine) (Heparin 5000 units/ml) 5,000 units EVERY 12 HOURS SUBQ 11/02/17 21:00 12/01/17 20:59 11/02/17 21:08 Hydralazine HCl (Apresoline) 25 mg Q4H PRN ORAL BP over 160 syst 11/02/17 19:00 12/02/17 18:59 Insulin Aspart (NovoLOG) AC+HS SUBQ 11/02/17 21:00 11/30/17 11:29 Ipratropium [place] (Atrovent) 500 mcg Q6H PRN HHN Shortness of Breath 11/02/17 18:00 11/05/17 11:59 Iron Sucrose 200 mg/Sodium Chloride 120 ml @ 240 mls/hr ONCE IV 11/03/17 09:30 11/03/17 10:30 Lisinopril (Zestril) 10 mg DAILY ORAL 11/03/17 09:00 12/03/17 08:59 Loperamide HCl (Imodium) 2 mg Q8H PRN ORAL Diarrhea 11/02/17 19:30 11/30/17 19:29 Metformin HCl (Glucophage) 850 mg BID ORAL 11/02/17 18:00 11/30/17 17:59 11/02/17 18:58 Pantoprazole (Protonix) 40 mg EVERY 12 HOURS ORAL 11/02/17 21:00 11/30/17 20:59 11/02/17 20:58 Piperacillin Sod/ Tazobactam Sod 3.375 gm/Dextrose 110 ml @ 27.5 mls/hr Q8HR IVPB 11/02/17 22:00 11/07/17 13:59 11/03/17 05:11 Potassium Chloride (K-Dur) 20 meq DAILY ORAL 11/03/17 09:00 11/30/17 13:59 Sertraline HCl (Zoloft) 25 mg DAILY ORAL 11/03/17 09:00 11/30/17 10:59 Zolpidem Tartrate (Ambien) 5 mg HSPRN PRN ORAL Insomnia 11/02/17 21:00 11/09/17 20:59 Camacho Briones MD Nov 03, 2017 08:29
[2017-11-03] MEDS ORDERED: Vitamin B12 1000mcg/ml Inj IM SCH (08:30)
[2017-11-03] MEDS ORDERED: Lisinopril 10mg tab ORAL SCH (09:00)
[2017-11-03] MEDS: Sertraline 50mg tab ORAL SCH (09:16)
[2017-11-03] MEDS: Amiodarone 200mg tab ORAL SCH (09:16)
[2017-11-03] MEDS: Aspirin EC 325mg tab ORAL SCH (09:18)
[2017-11-03] MEDS: Carvedilol 12.5mg tab ORAL SCH ×2 (09:19→20:45)
[2017-11-03] MEDS: Heparin 5000 units/ml inj SUBQ SCH ×2 (09:22→20:46)
[2017-11-03] MEDS ORDERED: Iron Sucrose 200 MG in NS 110 ML IV SCH (09:30)
[2017-11-03] MEDS: Norco 5mg/325mg tab ORAL PRN ×2 (09:40→20:44)
--- NOTE | 2017-11-03 10:18 | General Progress Note ---
Assessment/Plan Problem List: (1) Pneumonia ICD Codes: J18.9 - Pneumonia, unspecified organism SNOMED: 488868229 (2) Acute exacerbation of CHF (congestive heart failure) ICD Codes: I50.9 - Heart failure, unspecified SNOMED: 03292870 Qualifiers: Qualified Codes: I50.9 - Heart failure, unspecified Status: progressing Assessment/Plan leukocytosis still coughing not ready for dc possible tommorrow pna chf Subjective ROS Limited/Unobtainable: Yes Allergies: Coded Allergies: CODEINE (Verified Allergy, Unknown, 10/31/17) SULFA (SULFONAMIDE ANTIBIOTICS) (Verified Allergy, Unknown, 10/31/17) Subjective cough Objective Last 24 Hour Vital Signs Date Time Temp Pulse Resp B/P (MAP) Pulse Ox O2 Delivery O2 Flow Rate FiO2 11/03/17 09:40 98.4 11/03/17 09:19 64 148/63 11/03/17 09:18 148/63 11/03/17 09:17 64 148/63 11/03/17 08:00 98.4 64 21 148/63 (91) 95 98.4 11/03/17 06:39 Nasal Cannula 2.0 28 11/03/17 06:39 69 18 Nasal Cannula 2.0 28 11/03/17 06:39 94 Nasal Cannula 2.0 28 11/03/17 04:00 98.4 61 18 158/61 (93) 98 98.4 11/03/17 00:00 97.4 56 18 167/51 (89) 96 97.4 11/02/17 21:00 Room Air Room Air 11/02/17 20:58 61 175/62 11/02/17 20:00 93 Nasal Cannula 2.0 28 11/02/17 20:00 Nasal Cannula 2.0 28 11/02/17 20:00 98.7 61 19 93 98.7 11/02/17 19:30 60 20 Nasal Cannula 2.0 28 11/02/17 16:00 68 11/02/17 16:00 98.2 62 20 175/62 (99) 95 98.2 11/02/17 14:55 97.2 11/02/17 12:00 64 11/02/17 12:00 97.2 67 20 166/59 (94) 97 97.2 Intake and Output 11/02/17 11/03/17 19:00 07:00 Intake Total 800 ml 2815.0 ml Balance 800 ml 2815.0 ml Intake Oral 800 ml IV Total 2815.0 ml # Voids 4 3 Laboratory Tests 11/03/17 06:50: White Blood Count 8.6, Red Blood Count 3.79L, Hemoglobin 10.7L, Hematocrit 33.6L , Mean Corpuscular Volume 89, Mean Corpuscular Hemoglobin 28.3, Mean Corpuscular Hemoglobin Concent 32.0, Red Cell Distribution Width 13.5, Platelet Count 268, Mean Platelet Volume 7.9, Neutrophils (%) (Auto) 61.7, Lymphocytes (% ) (Auto) 25.1, Monocytes (%) (Auto) 6.7, Eosinophils (%) (Auto) 4.2H, Basophils (%) (Auto) 2.3H, Sodium Level 139, Potassium Level 4.0, Chloride Level 105, Carbon Dioxide Level 26, Anion Gap 8, Blood Urea Nitrogen 12, Creatinine 1.2, Estimat Glomerular Filtration Rate , Glucose Level 110H, Calcium Level 9.2 Height (Feet): 5 Height (Inches): 8.00 Weight (Pounds): 225 Neck: supple Cardiovascular: normal rate Respiratory/Chest: lungs clear Nia Valdez MD Nov 03, 2017 10:18
--- NOTE | 2017-11-03 10:39 | Nephrology Progress Note ---
Assessment/Plan Problem List: (1) Hypertension, accelerated, with diastolic congestive heart failure, NYHA class 1 (2) Diabetes (3) Atrial fibrillation (4) CHF (congestive heart failure) (5) Pneumonia Assessment HTN DM Anemia Pneumonia At fib Plan IV Iron, PO Folate, SQ B12 Norvasc Hydralazine 2D echo 65% EjFx Anemia cazares BS check ? Dc planning Subjective ROS Limited/Unobtainable: No Constitutional: Reports: malaise Objective Objective Last 24 Hour Vital Signs Date Time Temp Pulse Resp B/P (MAP) Pulse Ox O2 Delivery O2 Flow Rate FiO2 11/03/17 09:40 98.4 11/03/17 09:19 64 148/63 11/03/17 09:18 148/63 11/03/17 09:17 64 148/63 11/03/17 08:00 98.4 64 21 148/63 (91) 95 98.4 11/03/17 06:39 Nasal Cannula 2.0 28 11/03/17 06:39 69 18 Nasal Cannula 2.0 28 11/03/17 06:39 94 Nasal Cannula 2.0 28 11/03/17 04:00 98.4 61 18 158/61 (93) 98 98.4 11/03/17 00:00 97.4 56 18 167/51 (89) 96 97.4 11/02/17 21:00 Room Air Room Air 11/02/17 20:58 61 175/62 11/02/17 20:00 93 Nasal Cannula 2.0 28 11/02/17 20:00 Nasal Cannula 2.0 28 11/02/17 20:00 98.7 61 19 93 98.7 11/02/17 19:30 60 20 Nasal Cannula 2.0 28 11/02/17 16:00 68 11/02/17 16:00 98.2 62 20 175/62 (99) 95 98.2 11/02/17 14:55 97.2 11/02/17 12:00 64 11/02/17 12:00 97.2 67 20 166/59 (94) 97 97.2 Intake and Output 11/02/17 11/03/17 19:00 07:00 Intake Total 800 ml 2815.0 ml Balance 800 ml 2815.0 ml Intake Oral 800 ml IV Total 2815.0 ml # Voids 4 3 Laboratory Tests 11/03/17 06:50: White Blood Count 8.6, Red Blood Count 3.79L, Hemoglobin 10.7L, Hematocrit 33.6L , Mean Corpuscular Volume 89, Mean Corpuscular Hemoglobin 28.3, Mean Corpuscular Hemoglobin Concent 32.0, Red Cell Distribution Width 13.5, Platelet Count 268, Mean Platelet Volume 7.9, Neutrophils (%) (Auto) 61.7, Lymphocytes (% ) (Auto) 25.1, Monocytes (%) (Auto) 6.7, Eosinophils (%) (Auto) 4.2H, Basophils (%) (Auto) 2.3H, Sodium Level 139, Potassium Level 4.0, Chloride Level 105, Carbon Dioxide Level 26, Anion Gap 8, Blood Urea Nitrogen 12, Creatinine 1.2, Estimat Glomerular Filtration Rate , Glucose Level 110H, Calcium Level 9.2 Height (Feet): 5 Height (Inches): 8.00 Weight (Pounds): 225 General Appearance: no apparent distress Cardiovascular: arrhythmia Respiratory/Chest: decreased breath sounds Abdomen: distended Ghanshyam Negrete MD Nov 03, 2017 10:39
--- NOTE | 2017-11-03 10:47 | Diagnostic Imaging Report ---
Indication: Shortness of breath Technique: One view of the chest Comparison: 10/31/2017 Findings: Previously demonstrated parenchymal opacities have largely resolved. There is perhaps minimal blunting of the left costophrenic sulcus. Lungs and pleural spaces are otherwise clear. The heart is enlarged Impression: Improving right lung parenchymal disease, over 3 days Possible trace left pleural effusion
--- NOTE | 2017-11-03 12:13 | Infectious Diseases Prog Note ---
Assessment/Plan Assessment/Plan A; Pneumonia with klebsiella UTI with E.coli CHF DM Depression Obesity P; discontinue Zosyn & Doxycycline Start on Rocephin Subjective ROS Limited/Unobtainable: No Constitutional: Reports: no symptoms Respiratory: Reports: productive cough Gastrointestinal/Abdominal: Reports: no symptoms Genitourinary: Reports: frequency Allergies: Coded Allergies: CODEINE (Verified Allergy, Unknown, 10/31/17) SULFA (SULFONAMIDE ANTIBIOTICS) (Verified Allergy, Unknown, 10/31/17) Objective Vital Signs Last 24 Hour Vital Signs Date Time Temp Pulse Resp B/P (MAP) Pulse Ox O2 Delivery O2 Flow Rate FiO2 11/03/17 10:39 98.4 11/03/17 09:40 98.4 11/03/17 09:19 64 148/63 11/03/17 09:18 148/63 11/03/17 09:17 64 148/63 11/03/17 09:00 Room Air Room Air 11/03/17 08:00 98.4 64 21 148/63 (91) 95 98.4 11/03/17 06:39 Nasal Cannula 2.0 28 11/03/17 06:39 69 18 Nasal Cannula 2.0 28 11/03/17 06:39 94 Nasal Cannula 2.0 28 11/03/17 04:00 98.4 61 18 158/61 (93) 98 98.4 11/03/17 00:00 97.4 56 18 167/51 (89) 96 97.4 11/02/17 21:00 Room Air Room Air 11/02/17 20:58 61 175/62 11/02/17 20:00 93 Nasal Cannula 2.0 28 11/02/17 20:00 Nasal Cannula 2.0 28 11/02/17 20:00 98.7 61 19 93 98.7 11/02/17 19:30 60 20 Nasal Cannula 2.0 28 11/02/17 16:00 68 11/02/17 16:00 98.2 62 20 175/62 (99) 95 98.2 11/02/17 14:55 97.2 Height (Feet): 5 Height (Inches): 8.00 Weight (Pounds): 225 HEENT: mucous membranes moist Respiratory/Chest: lungs clear Cardiovascular: normal rate Abdomen: soft, non tender Extremities: other - mild periankle edema Neurologic/Psychiatric: alert, oriented x 3, responsive Microbiology Date/Time Source Procedure Growth Status 10/31/17 23:19 Nasal Nares Influenza Types A,B Antigen (GELY) - Final Complete 10/31/17 13:35 Sputum Gram Stain - Final Complete 10/31/17 13:35 Sputum Culture - Final Klebsiella Pneumoniae Usual Respiratory Ana Complete Laboratory Tests Test 11/03/17 06:50 White Blood Count 8.6 K/UL (4.8-10.8) Red Blood Count 3.79 M/UL (4.20-5.40) L Hemoglobin 10.7 G/DL (12.0-16.0) L Hematocrit 33.6 % (37.0-47.0) L Mean Corpuscular Volume 89 FL (80-99) Mean Corpuscular Hemoglobin 28.3 PG (27.0-31.0) Mean Corpuscular Hemoglobin Concent 32.0 G/DL (32.0-36.0) Red Cell Distribution Width 13.5 % (11.6-14.8) Platelet Count 268 K/UL (150-450) Mean Platelet Volume 7.9 FL (6.5-10.1) Neutrophils (%) (Auto) 61.7 % (45.0-75.0) Lymphocytes (%) (Auto) 25.1 % (20.0-45.0) Monocytes (%) (Auto) 6.7 % (1.0-10.0) Eosinophils (%) (Auto) 4.2 % (0.0-3.0) H Basophils (%) (Auto) 2.3 % (0.0-2.0) H Sodium Level 139 MMOL/L (136-145) Potassium Level 4.0 MMOL/L (3.5-5.1) Chloride Level 105 MMOL/L (98-107) Carbon Dioxide Level 26 MMOL/L (21-32) Anion Gap 8 mmol/L (5-15) Blood Urea Nitrogen 12 mg/dL (7-18) Creatinine 1.2 MG/DL (0.55-1.30) Estimat Glomerular Filtration Rate mL/min (>60) Glucose Level 110 MG/DL (74-106) H Calcium Level 9.2 MG/DL (8.5-10.1) Current Medications Medications (Trade) Dose Ordered Sig/Renetta Route PRN Reason Start Time Stop Time Status Last Admin Dose Admin Acetaminophen (Tylenol) 500 mg Q6H PRN ORAL Mild Pain/Temp > 100.5 11/02/17 18:30 11/30/17 18:29 Acetaminophen/ Hydrocodone Bitart ([place] 5/325) 1 tab Q8H PRN ORAL PAIN 4-10 11/02/17 18:45 11/07/17 10:44 11/03/17 09:40 Amiodarone HCl (Cordarone) 200 mg DAILY ORAL 11/03/17 09:00 11/30/17 10:59 11/03/17 09:16 Amlodipine Besylate (Norvasc) 10 mg DAILY ORAL 11/03/17 09:00 12/03/17 08:59 11/03/17 09:17 Aspirin (Ecotrin) 325 mg DAILY ORAL 11/03/17 09:00 11/30/17 10:59 11/03/17 09:18 Carvedilol (Coreg) 12.5 mg EVERY 12 HOURS ORAL 11/02/17 21:00 11/30/17 20:59 11/03/17 09:19 Dextrose (Dextrose 50%) 25 ml STAT PRN IV Hypoglycemia 11/02/17 18:30 12/02/17 18:29 Dextrose (Dextrose 50%) 50 ml STAT PRN IV Hypoglycemia 11/03/17 18:30 11/30/17 18:29 Doxycycline Monohydrate (Vibramycin) 100 mg EVERY 12 HOURS ORAL 11/02/17 21:00 11/07/17 20:59 11/03/17 09:19 Folic Acid (Folate) 2 mg DAILY ORAL 11/03/17 09:00 12/03/17 08:59 11/03/17 09:18 Furosemide (Lasix) 20 mg DAILY ORAL 11/03/17 09:00 12/01/17 08:59 11/03/17 09:17 Gabapentin (Neurontin) 100 mg Q8HR ORAL 11/02/17 22:00 11/30/17 13:59 11/03/17 05:15 Guaifenesin/ Dextromethorphan (Robitussin DM Syrup) 10 ml Q4H PRN ORAL For Cough 11/02/17 19:00 11/30/17 14:59 11/03/17 05:16 Heparin Sodium (Porcine) (Heparin 5000 units/ml) 5,000 units EVERY 12 HOURS SUBQ 11/02/17 21:00 12/01/17 20:59 11/03/17 09:22 Hydralazine HCl (Apresoline) 25 mg Q4H PRN ORAL BP over 160 syst 11/02/17 19:00 12/02/17 18:59 Insulin Aspart (NovoLOG) AC+HS SUBQ 11/02/17 21:00 11/30/17 11:29 Ipratropium [place] (Atrovent) 500 mcg Q6H PRN HHN Shortness of Breath 11/02/17 18:00 11/05/17 11:59 Lisinopril (Zestril) 10 mg DAILY ORAL 11/03/17 09:00 12/03/17 08:59 11/03/17 09:18 Loperamide HCl (Imodium) 2 mg Q8H PRN ORAL Diarrhea 11/02/17 19:30 11/30/17 19:29 Metformin HCl (Glucophage) 850 mg BID ORAL 11/02/17 18:00 11/30/17 17:59 11/03/17 09:20 Pantoprazole (Protonix) 40 mg EVERY 12 HOURS ORAL 11/02/17 21:00 11/30/17 20:59 11/03/17 09:17 Piperacillin Sod/ Tazobactam Sod 3.375 gm/Dextrose 110 ml @ 27.5 mls/hr Q8HR IVPB 11/02/17 22:00 11/07/17 13:59 11/03/17 05:11 Potassium Chloride (K-Dur) 20 meq DAILY ORAL 11/03/17 09:00 11/30/17 13:59 11/03/17 09:17 Sertraline HCl (Zoloft) 25 mg DAILY ORAL 11/03/17 09:00 11/30/17 10:59 11/03/17 09:16 Zolpidem Tartrate (Ambien) 5 mg HSPRN PRN ORAL Insomnia 11/02/17 21:00 11/09/17 20:59 Osito Carney MD Nov 03, 2017 12:13
[2017-11-03] MEDS: cefTRIAXone 1 GM in D5W 55 ML IVPB SCH (13:37)
--- NOTE | 2017-11-03 15:15 | General Progress Note ---
Assessment/Plan Assessment/Plan MDD Anxiety d/o -zoloft -provided ro/st Subjective Date patient seen: Nov 03, 2017 Neurologic/Psychiatric: Reports: anxiety, depressed, emotional problems Allergies: Coded Allergies: CODEINE (Verified Allergy, Unknown, 10/31/17) SULFA (SULFONAMIDE ANTIBIOTICS) (Verified Allergy, Unknown, 10/31/17) Objective Last 24 Hour Vital Signs Date Time Temp Pulse Resp B/P (MAP) Pulse Ox O2 Delivery O2 Flow Rate FiO2 11/03/17 12:00 97.6 59 20 162/97 (118) 95 97.6 11/03/17 10:39 98.4 11/03/17 09:40 98.4 11/03/17 09:19 64 148/63 11/03/17 09:18 148/63 11/03/17 09:17 64 148/63 11/03/17 09:00 Room Air Room Air 11/03/17 08:00 98.4 64 21 148/63 (91) 95 98.4 11/03/17 06:39 Nasal Cannula 2.0 28 11/03/17 06:39 69 18 Nasal Cannula 2.0 28 11/03/17 06:39 94 Nasal Cannula 2.0 28 11/03/17 04:00 98.4 61 18 158/61 (93) 98 98.4 11/03/17 00:00 97.4 56 18 167/51 (89) 96 97.4 11/02/17 21:00 Room Air Room Air 11/02/17 20:58 61 175/62 11/02/17 20:00 93 Nasal Cannula 2.0 28 11/02/17 20:00 Nasal Cannula 2.0 28 11/02/17 20:00 98.7 61 19 93 98.7 11/02/17 19:30 60 20 Nasal Cannula 2.0 28 11/02/17 16:00 68 11/02/17 16:00 98.2 62 20 175/62 (99) 95 98.2 Intake and Output 11/02/17 11/03/17 19:00 07:00 Intake Total 800 ml 2815.0 ml Balance 800 ml 2815.0 ml Intake Oral 800 ml IV Total 2815.0 ml # Voids 4 3 Laboratory Tests 11/03/17 06:50: White Blood Count 8.6, Red Blood Count 3.79L, Hemoglobin 10.7L, Hematocrit 33.6L , Mean Corpuscular Volume 89, Mean Corpuscular Hemoglobin 28.3, Mean Corpuscular Hemoglobin Concent 32.0, Red Cell Distribution Width 13.5, Platelet Count 268, Mean Platelet Volume 7.9, Neutrophils (%) (Auto) 61.7, Lymphocytes (% ) (Auto) 25.1, Monocytes (%) (Auto) 6.7, Eosinophils (%) (Auto) 4.2H, Basophils (%) (Auto) 2.3H, Sodium Level 139, Potassium Level 4.0, Chloride Level 105, Carbon Dioxide Level 26, Anion Gap 8, Blood Urea Nitrogen 12, Creatinine 1.2, Estimat Glomerular Filtration Rate , Glucose Level 110H, Calcium Level 9.2 Height (Feet): 5 Height (Inches): 8.00 Weight (Pounds): 225 General Appearance: no apparent distress, alert Neurologic: oriented x 3, responsive Nasrin Fischer MD Nov 03, 2017 15:15
[2017-11-03] MEDS: HydrALAZINE 25mg tab ORAL PRN (16:24)
[2017-11-03] MEDS: Zolpidem 5mg tab ORAL PRN (22:13)
[2017-11-04] VITALS: BP 149/64
[2017-11-04 04:00] VITALS: BP 154/59
[2017-11-04] MEDS: NovoLOG Insulin Flexpen SUBQ SCH ×4 (06:17→21:00)
[2017-11-04] MEDS: Norco 5mg/325mg tab ORAL PRN ×3 (06:20→22:43)
--- NOTE | 2017-11-04 07:59 | Pulmonology Progress Note ---
Assessment/Plan Problems: (1) Pneumonia (2) UTI (urinary tract infection) (3) CHF (congestive heart failure) (4) halfway resident (5) Atrial fibrillation (6) Diabetes Assessment/Plan -Optimize pulmonary hygiene/mobilize as tolerated -PRN O2 -PRN ATROVENT ONLY HHN's -Abx per ID (CTx) -Infiltrates need to be followed to resolution, repeat CXR in 1-2 weeks -Diet per [employer] with STRICT aspiration precautions -Monitor volumes, continue PO Lasix -DVT Px: Hep SQ -FC Subjective Allergies: Coded Allergies: CODEINE (Verified Allergy, Unknown, 10/31/17) SULFA (SULFONAMIDE ANTIBIOTICS) (Verified Allergy, Unknown, 10/31/17) Subjective AFVSS, stable on RA, less cough, less phlegm, denies SOB, no F/C, getting OOB, CXR better Objective Last 24 Hour Vital Signs Date Time Temp Pulse Resp B/P (MAP) Pulse Ox O2 Delivery O2 Flow Rate FiO2 11/04/17 04:00 97.8 60 20 154/59 (90) 96 97.8 11/04/17 00:00 97.5 58 20 149/64 (92) 97 97.5 11/03/17 21:00 Room Air Room Air 11/03/17 20:45 60 151/64 11/03/17 20:22 68 18 Room Air 21 11/03/17 20:22 95 Room Air 21 11/03/17 20:22 Room Air 21 11/03/17 20:00 98.5 60 20 151/64 (93) 97 98.5 11/03/17 17:04 97.6 11/03/17 17:00 98.9 59 21 156/75 (102) 95 98.9 11/03/17 16:24 174/64 11/03/17 16:05 97.6 11/03/17 16:00 98.9 59 21 174/64 (100) 97 98.9 11/03/17 12:00 97.6 59 20 162/97 (118) 95 97.6 11/03/17 10:39 98.4 11/03/17 09:40 98.4 11/03/17 09:19 64 148/63 11/03/17 09:18 148/63 11/03/17 09:17 64 148/63 11/03/17 09:00 Room Air Room Air 11/03/17 08:00 98.4 64 21 148/63 (91) 95 98.4 Intake and Output 11/03/17 11/04/17 19:00 07:00 Intake Total 960 ml 240 ml Balance 960 ml 240 ml Intake Oral 960 ml 240 ml # Voids 1 4 # Bowel Movements 3 General Appearance: WD/WN, no acute distress HEENT: normocephalic, atraumatic, anicteric, mucous membranes moist Respiratory/Chest: chest wall non-tender, lungs clear, normal breath sounds, no respiratory distress, no accessory muscle use Cardiovascular: normal peripheral pulses, normal rate, regular rhythm Abdomen: normal bowel sounds, soft, non tender, no organomegaly, non distended , no mass Extremities: no cyanosis, no clubbing, no edema Current Medications Medications (Trade) Dose Ordered Sig/Renetta Route PRN Reason Start Time Stop Time Status Last Admin Dose Admin Acetaminophen (Tylenol) 500 mg Q6H PRN ORAL Mild Pain/Temp > 100.5 11/02/17 18:30 11/30/17 18:29 11/03/17 16:05 Acetaminophen/ Hydrocodone Bitart ([place] 5/325) 1 tab Q8H PRN ORAL PAIN 4-10 11/02/17 18:45 11/07/17 10:44 11/04/17 06:20 Amiodarone HCl (Cordarone) 200 mg DAILY ORAL 11/03/17 09:00 11/30/17 10:59 11/03/17 09:16 Amlodipine Besylate (Norvasc) 10 mg DAILY ORAL 11/03/17 09:00 12/03/17 08:59 11/03/17 09:17 Aspirin (Ecotrin) 325 mg DAILY ORAL 11/03/17 09:00 11/30/17 10:59 11/03/17 09:18 Carvedilol (Coreg) 12.5 mg EVERY 12 HOURS ORAL 11/02/17 21:00 11/30/17 20:59 11/03/17 20:45 Ceftriaxone Sodium 1 gm/ Dextrose 55 ml @ 110 mls/hr Q24H IVPB 11/03/17 14:00 11/10/17 13:59 11/03/17 13:37 Dextrose (Dextrose 50%) 25 ml STAT PRN IV Hypoglycemia 11/02/17 18:30 12/02/17 18:29 Dextrose (Dextrose 50%) 50 ml STAT PRN IV Hypoglycemia 11/03/17 18:30 11/30/17 18:29 Folic Acid (Folate) 2 mg DAILY ORAL 11/03/17 09:00 12/03/17 08:59 11/03/17 09:18 Furosemide (Lasix) 20 mg DAILY ORAL 11/03/17 09:00 12/01/17 08:59 11/03/17 09:17 Gabapentin (Neurontin) 100 mg Q8HR ORAL 11/02/17 22:00 11/30/17 13:59 11/04/17 06:15 Guaifenesin/ Dextromethorphan (Robitussin DM Syrup) 10 ml Q4H PRN ORAL For Cough 11/02/17 19:00 11/30/17 14:59 11/03/17 05:16 Heparin Sodium (Porcine) (Heparin 5000 units/ml) 5,000 units EVERY 12 HOURS SUBQ 11/02/17 21:00 12/01/17 20:59 11/03/17 20:46 Hydralazine HCl (Apresoline) 25 mg Q4H PRN ORAL BP over 160 syst 11/02/17 19:00 12/02/17 18:59 11/03/17 16:24 Insulin Aspart (NovoLOG) AC+HS SUBQ 11/02/17 21:00 11/30/17 11:29 Ipratropium [place] (Atrovent) 500 mcg Q6H PRN HHN Shortness of Breath 11/02/17 18:00 11/05/17 11:59 Lisinopril (Zestril) 10 mg DAILY ORAL 11/03/17 09:00 12/03/17 08:59 11/03/17 09:18 Loperamide HCl (Imodium) 2 mg Q8H PRN ORAL Diarrhea 11/02/17 19:30 11/30/17 19:29 11/03/17 14:34 Metformin HCl (Glucophage) 850 mg BID ORAL 11/02/17 18:00 11/30/17 17:59 11/03/17 17:38 Pantoprazole (Protonix) 40 mg EVERY 12 HOURS ORAL 11/02/17 21:00 11/30/17 20:59 11/03/17 20:44 Potassium Chloride (K-Dur) 20 meq DAILY ORAL 11/03/17 09:00 11/30/17 13:59 11/03/17 09:17 Sertraline HCl (Zoloft) 25 mg DAILY ORAL 11/03/17 09:00 11/30/17 10:59 11/03/17 09:16 Zolpidem Tartrate (Ambien) 5 mg HSPRN PRN ORAL Insomnia 11/02/17 21:00 11/09/17 20:59 11/03/17 22:13 Camacho Briones MD Nov 04, 2017 07:59
[2017-11-04 08:00] VITALS: BP 178/60
[2017-11-04] MEDS ORDERED: HydrALAZINE 25mg tab ORAL SCH (09:00)
[2017-11-04] MEDS ORDERED: Lisinopril 20mg tab ORAL SCH (09:00)
[2017-11-04] MEDS ORDERED: Carvedilol 12.5mg tab ORAL SCH (09:00)
[2017-11-04] MEDS ORDERED: PRINIVIL20 MG ORAL (09:21)
[2017-11-04] MEDS ORDERED: NORVASC5 MG ORAL ×2 (09:21→11:46)
[2017-11-04] MEDS ORDERED: HYDRALAZINE HCL25 M2 PO (09:21)
[2017-11-04] MEDS: Aspirin EC 325mg tab ORAL SCH (09:27)
[2017-11-04] MEDS: Amiodarone 200mg tab ORAL SCH (09:28)
[2017-11-04] MEDS: Sertraline 50mg tab ORAL SCH (09:29)
[2017-11-04] MEDS: Heparin 5000 units/ml inj SUBQ SCH ×2 (09:30→21:30)
--- NOTE | 2017-11-04 11:22 | Nephrology Progress Note ---
Assessment/Plan Problem List: (1) Hypertension, accelerated, with diastolic congestive heart failure, NYHA class 1 (2) Diabetes (3) Atrial fibrillation (4) CHF (congestive heart failure) (5) Pneumonia Assessment HTN- DM- Anemia- Pneumonia- At fib- Plan IV Iron, PO Folate, SQ B12 adjust bp meds- hold coreg for low bp 2D echo 65% EjFx Anemia cazares BS check ? Dc planning Subjective ROS Limited/Unobtainable: No Constitutional: Reports: malaise Objective Objective Last 24 Hour Vital Signs Date Time Temp Pulse Resp B/P (MAP) Pulse Ox O2 Delivery O2 Flow Rate FiO2 11/04/17 09:28 65 178/60 11/04/17 09:28 178/60 11/04/17 09:28 178/60 11/04/17 09:00 Room Air Room Air 11/04/17 08:00 98.0 65 20 178/60 (99) 98 98.0 11/04/17 04:00 97.8 60 20 154/59 (90) 96 97.8 11/04/17 00:00 97.5 58 20 149/64 (92) 97 97.5 11/03/17 21:00 Room Air Room Air 11/03/17 20:45 60 151/64 11/03/17 20:22 68 18 Room Air 21 11/03/17 20:22 95 Room Air 21 11/03/17 20:22 Room Air 21 11/03/17 20:00 98.5 60 20 151/64 (93) 97 98.5 11/03/17 17:04 97.6 11/03/17 17:00 98.9 59 21 156/75 (102) 95 98.9 11/03/17 16:24 174/64 11/03/17 16:05 97.6 11/03/17 16:00 98.9 59 21 174/64 (100) 97 98.9 11/03/17 12:00 97.6 59 20 162/97 (118) 95 97.6 Intake and Output 11/03/17 11/04/17 19:00 07:00 Intake Total 960 ml 240 ml Balance 960 ml 240 ml Intake Oral 960 ml 240 ml # Voids 1 4 # Bowel Movements 3 Height (Feet): 5 Height (Inches): 8.00 Weight (Pounds): 229 General Appearance: no apparent distress Cardiovascular: bradycardia Abdomen: soft Ghanshyam Negrete MD Nov 04, 2017 11:22
[2017-11-04] MEDS ORDERED: LISINOPRIL20 MG ORAL (11:46)
[2017-11-04 12:00] VITALS: BP 174/46
[2017-11-04] MEDS ORDERED: LEVAQUIN750 MG ORAL (13:51)
--- NOTE | 2017-11-04 14:02 | General Progress Note ---
Assessment/Plan Status: stable, progressing Assessment/Plan MDD Anxiety d/o -zoloft -provided ro/st Subjective Date patient seen: Nov 04, 2017 Neurologic/Psychiatric: Reports: anxiety, depressed, emotional problems Allergies: Coded Allergies: CODEINE (Verified Allergy, Unknown, 10/31/17) SULFA (SULFONAMIDE ANTIBIOTICS) (Verified Allergy, Unknown, 10/31/17) Objective Last 24 Hour Vital Signs Date Time Temp Pulse Resp B/P (MAP) Pulse Ox O2 Delivery O2 Flow Rate FiO2 11/04/17 12:00 97.5 77 20 174/46 (88) 98 97.5 11/04/17 09:49 66 18 Room Air 21 11/04/17 09:49 Room Air 21 11/04/17 09:49 96 Room Air 21 11/04/17 09:28 65 178/60 11/04/17 09:28 178/60 11/04/17 09:28 178/60 11/04/17 09:00 Room Air Room Air 11/04/17 08:00 98.0 65 20 178/60 (99) 98 98.0 11/04/17 04:00 97.8 60 20 154/59 (90) 96 97.8 11/04/17 00:00 97.5 58 20 149/64 (92) 97 97.5 11/03/17 21:00 Room Air Room Air 11/03/17 20:45 60 151/64 11/03/17 20:22 68 18 Room Air 21 11/03/17 20:22 95 Room Air 21 11/03/17 20:22 Room Air 21 11/03/17 20:00 98.5 60 20 151/64 (93) 97 98.5 11/03/17 17:04 97.6 11/03/17 17:00 98.9 59 21 156/75 (102) 95 98.9 11/03/17 16:24 174/64 11/03/17 16:05 97.6 11/03/17 16:00 98.9 59 21 174/64 (100) 97 98.9 Intake and Output 11/03/17 11/04/17 19:00 07:00 Intake Total 960 ml 240 ml Balance 960 ml 240 ml Intake Oral 960 ml 240 ml # Voids 1 4 # Bowel Movements 3 Height (Feet): 5 Height (Inches): 8.00 Weight (Pounds): 229 General Appearance: no apparent distress, alert Neurologic: oriented x 3, responsive, depressed affect Nasrin Fischer MD Nov 04, 2017 14:02
[2017-11-04] MEDS: cefTRIAXone 1 GM in D5W 55 ML IVPB SCH (14:06)
--- NOTE | 2017-11-04 14:42 | Infectious Diseases Prog Note ---
Assessment/Plan Assessment/Plan A; Pneumonia with klebsiella UTI with E.coli CHF DM Depression Obesity P; can be discharged with Po Levaquin 750mg/day X 2 days Subjective ROS Limited/Unobtainable: No Respiratory: Reports: no symptoms Cardiovascular: Reports: no symptoms Gastrointestinal/Abdominal: Reports: no symptoms Genitourinary: Reports: no symptoms Allergies: Coded Allergies: CODEINE (Verified Allergy, Unknown, 10/31/17) SULFA (SULFONAMIDE ANTIBIOTICS) (Verified Allergy, Unknown, 10/31/17) Objective Vital Signs Last 24 Hour Vital Signs Date Time Temp Pulse Resp B/P (MAP) Pulse Ox O2 Delivery O2 Flow Rate FiO2 11/04/17 12:00 97.5 77 20 174/46 (88) 98 97.5 11/04/17 09:49 66 18 Room Air 11/04/17 09:49 Room Air 21 11/04/17 09:49 96 Room Air 21 11/04/17 09:28 65 178/60 11/04/17 09:28 178/60 11/04/17 09:28 178/60 11/04/17 09:00 Room Air Room Air 11/04/17 08:00 98.0 65 20 178/60 (99) 98 98.0 11/04/17 04:00 97.8 60 20 154/59 (90) 96 97.8 11/04/17 00:00 97.5 58 20 149/64 (92) 97 97.5 11/03/17 21:00 Room Air Room Air 11/03/17 20:45 60 151/64 11/03/17 20:22 68 18 Room Air 21 11/03/17 20:22 95 Room Air 21 11/03/17 20:22 Room Air 21 11/03/17 20:00 98.5 60 20 151/64 (93) 97 98.5 11/03/17 17:04 97.6 11/03/17 17:00 98.9 59 21 156/75 (102) 95 98.9 11/03/17 16:24 174/64 11/03/17 16:05 97.6 11/03/17 16:00 98.9 59 21 174/64 (100) 97 98.9 Height (Feet): 5 Height (Inches): 8.00 Weight (Pounds): 229 General Appearance: no acute distress HEENT: mucous membranes moist Respiratory/Chest: lungs clear Cardiovascular: normal rate Abdomen: soft, non tender Extremities: no edema Neurologic/Psychiatric: alert, oriented x 3, responsive Current Medications Medications (Trade) Dose Ordered Sig/Renetta Route PRN Reason Start Time Stop Time Status Last Admin Dose Admin Acetaminophen (Tylenol) 500 mg Q6H PRN ORAL Mild Pain/Temp > 100.5 11/02/17 18:30 11/30/17 18:29 11/03/17 16:05 Acetaminophen/ Hydrocodone Bitart ([place] 5/325) 1 tab Q8H PRN ORAL PAIN 4-10 11/02/17 18:45 11/07/17 10:44 11/04/17 14:37 Amiodarone HCl (Cordarone) 200 mg DAILY ORAL 11/03/17 09:00 11/30/17 10:59 11/04/17 09:28 Amlodipine Besylate (Norvasc) 5 mg BID ORAL 11/04/17 18:00 12/04/17 08:59 Aspirin (Ecotrin) 325 mg DAILY ORAL 11/03/17 09:00 11/30/17 10:59 11/04/17 09:27 Ceftriaxone Sodium 1 gm/ Dextrose 55 ml @ 110 mls/hr Q24H IVPB 11/03/17 14:00 11/10/17 13:59 11/04/17 14:06 Dextrose (Dextrose 50%) 25 ml STAT PRN IV Hypoglycemia 11/02/17 18:30 12/02/17 18:29 Dextrose (Dextrose 50%) 50 ml STAT PRN IV Hypoglycemia 11/03/17 18:30 11/30/17 18:29 Folic Acid (Folate) 2 mg DAILY ORAL 11/03/17 09:00 12/03/17 08:59 11/04/17 09:28 Furosemide (Lasix) 20 mg DAILY ORAL 11/03/17 09:00 12/01/17 08:59 11/04/17 09:29 Gabapentin (Neurontin) 100 mg Q8HR ORAL 11/02/17 22:00 11/30/17 13:59 11/04/17 14:06 Guaifenesin/ Dextromethorphan (Robitussin DM Syrup) 10 ml Q4H PRN ORAL For Cough 11/02/17 19:00 11/30/17 14:59 11/03/17 05:16 Heparin Sodium (Porcine) (Heparin 5000 units/ml) 5,000 units EVERY 12 HOURS SUBQ 11/02/17 21:00 12/01/17 20:59 11/04/17 09:30 Hydralazine HCl (Apresoline) 25 mg Q4H PRN ORAL BP over 160 syst 11/02/17 19:00 12/02/17 18:59 11/03/17 16:24 Hydralazine HCl (Apresoline) 25 mg Q8H ORAL 11/04/17 17:00 12/04/17 08:59 Insulin Aspart (NovoLOG) AC+HS SUBQ 11/02/17 21:00 11/30/17 11:29 Ipratropium [place] (Atrovent) 500 mcg Q6H PRN HHN Shortness of Breath 11/02/17 18:00 11/05/17 11:59 Lisinopril (Prinivil) 20 mg BID ORAL 11/04/17 18:00 12/03/17 08:59 Loperamide HCl (Imodium) 2 mg Q8H PRN ORAL Diarrhea 11/02/17 19:30 11/30/17 19:29 11/03/17 14:34 Metformin HCl (Glucophage) 850 mg BID ORAL 11/02/17 18:00 11/30/17 17:59 11/04/17 09:28 Pantoprazole (Protonix) 40 mg EVERY 12 HOURS ORAL 11/02/17 21:00 11/30/17 20:59 11/04/17 09:27 Potassium Chloride (K-Dur) 20 meq DAILY ORAL 11/03/17 09:00 11/30/17 13:59 11/04/17 09:28 Sertraline HCl (Zoloft) 25 mg DAILY ORAL 11/03/17 09:00 11/30/17 10:59 11/04/17 09:29 Zolpidem Tartrate (Ambien) 5 mg HSPRN PRN ORAL Insomnia 11/02/17 21:00 11/09/17 20:59 11/03/17 22:13 Osito Carney MD Nov 04, 2017 14:42
[2017-11-04] MEDS: HydrALAZINE 25mg tab ORAL PRN (15:18)
[2017-11-04 16:00] VITALS: BP 188/77
[2017-11-04] MEDS: Lisinopril 20mg tab ORAL SCH (17:41)
[2017-11-04] MEDS: HydrALAZINE 25mg tab ORAL SCH (17:41)
--- NOTE | 2017-11-04 18:05 | General Progress Note ---
Assessment/Plan Problem List: (1) Pneumonia ICD Codes: J18.9 - Pneumonia, unspecified organism SNOMED: 929159761 (2) Acute exacerbation of CHF (congestive heart failure) ICD Codes: I50.9 - Heart failure, unspecified SNOMED: 54087788 Qualifiers: Qualified Codes: I50.9 - Heart failure, unspecified Status: progressing Assessment/Plan leukocytosis improving dc to snf once cleared by pulmonagist htn elev bp not hypoxic not sob Subjective ROS Limited/Unobtainable: Yes Allergies: Coded Allergies: CODEINE (Verified Allergy, Unknown, 10/31/17) SULFA (SULFONAMIDE ANTIBIOTICS) (Verified Allergy, Unknown, 10/31/17) Subjective cough Objective Last 24 Hour Vital Signs Date Time Temp Pulse Resp B/P (MAP) Pulse Ox O2 Delivery O2 Flow Rate FiO2 11/04/17 17:41 187/62 11/04/17 17:41 187/62 11/04/17 17:41 76 187/62 11/04/17 16:00 97.7 74 20 188/77 (114) 97 97.7 11/04/17 15:18 174/69 11/04/17 12:00 97.5 77 20 174/46 (88) 98 97.5 11/04/17 09:49 66 18 Room Air 21 11/04/17 09:49 Room Air 21 11/04/17 09:49 96 Room Air 21 11/04/17 09:28 65 178/60 11/04/17 09:28 178/60 11/04/17 09:28 178/60 11/04/17 09:00 Room Air Room Air 11/04/17 08:00 98.0 65 20 178/60 (99) 98 98.0 11/04/17 04:00 97.8 60 20 154/59 (90) 96 97.8 11/04/17 00:00 97.5 58 20 149/64 (92) 97 97.5 11/03/17 21:00 Room Air Room Air 11/03/17 20:45 60 151/64 11/03/17 20:22 68 18 Room Air 21 11/03/17 20:22 95 Room Air 21 11/03/17 20:22 Room Air 21 11/03/17 20:00 98.5 60 20 151/64 (93) 97 98.5 Intake and Output 11/03/17 11/04/17 19:00 07:00 Intake Total 960 ml 240 ml Balance 960 ml 240 ml Intake Oral 960 ml 240 ml # Voids 1 4 # Bowel Movements 3 Height (Feet): 5 Height (Inches): 8.00 Weight (Pounds): 229 Neck: supple Cardiovascular: normal rate Respiratory/Chest: lungs clear Nia Valdez MD Nov 04, 2017 18:05
[2017-11-04] MEDS ORDERED: LORazepam 1mg tab ORAL SCH (18:45)
[2017-11-04 20:00] VITALS: BP 175/52
[2017-11-04] MEDS ORDERED: Metoprolol 25mg tab ORAL SCH (21:00)
[2017-11-04] MEDS: Zolpidem 5mg tab ORAL PRN (21:29)
[2017-11-05] VITALS: BP 137/51
[2017-11-05] MEDS: HydrALAZINE 25mg tab ORAL SCH (01:00)
[2017-11-05 04:00] VITALS: BP 157/50
[2017-11-05] MEDS: NovoLOG Insulin Flexpen SUBQ SCH ×2 (06:02→11:30)
[2017-11-05 08:00] VITALS: BP 145/61
--- NOTE | 2017-11-05 08:09 | Pulmonology Progress Note ---
Assessment/Plan Problems: (1) Pneumonia (2) UTI (urinary tract infection) (3) CHF (congestive heart failure) (4) residential resident (5) Atrial fibrillation (6) Diabetes Assessment/Plan -Optimize pulmonary hygiene/mobilize as tolerated -PRN O2 -PRN ATROVENT ONLY HHN's -Abx per ID (CTx, to be D/C'd on 1 additional day of PO Levaquin) -Infiltrates need to be followed to resolution, repeat CXR in 1-2 weeks -Diet per [employer] with STRICT aspiration precautions -Monitor volumes, continue PO Lasix -DVT Px: Hep SQ -FC Subjective Allergies: Coded Allergies: CODEINE (Verified Allergy, Unknown, 10/31/17) SULFA (SULFONAMIDE ANTIBIOTICS) (Verified Allergy, Unknown, 10/31/17) Subjective AFVSS, stable on RA, no cough, no phlegm, denies SOB, no F/C, getting OOB Dispo held 2/2 elevated BP Objective Last 24 Hour Vital Signs Date Time Temp Pulse Resp B/P (MAP) Pulse Ox O2 Delivery O2 Flow Rate FiO2 11/05/17 04:00 97.8 53 18 157/50 (85) 97 97.8 11/05/17 01:00 137/51 11/05/17 00:00 98.2 53 18 137/51 (79) 94 98.2 11/04/17 21:29 65 175/52 11/04/17 21:00 Room Air Room Air 11/04/17 20:43 Room Air 21 11/04/17 20:42 96 Room Air 21 11/04/17 20:42 63 18 Room Air 21 11/04/17 20:00 99.2 65 18 175/52 (93) 95 99.2 11/04/17 18:58 209/138 11/04/17 17:41 187/62 11/04/17 17:41 187/62 11/04/17 17:41 76 187/62 11/04/17 16:00 97.7 74 20 188/77 (114) 97 97.7 11/04/17 15:18 174/69 11/04/17 12:00 97.5 77 20 174/46 (88) 98 97.5 11/04/17 09:49 66 18 Room Air 21 11/04/17 09:49 Room Air 21 11/04/17 09:49 96 Room Air 21 11/04/17 09:28 65 178/60 11/04/17 09:28 178/60 11/04/17 09:28 178/60 11/04/17 09:00 Room Air Room Air Intake and Output 11/04/17 11/05/17 19:00 07:00 Intake Total 240 ml Balance 240 ml Intake Oral 240 ml # Voids 5 1 General Appearance: WD/WN, no acute distress HEENT: normocephalic, atraumatic, anicteric, mucous membranes moist Respiratory/Chest: chest wall non-tender, lungs clear, normal breath sounds, no respiratory distress, no accessory muscle use Cardiovascular: normal peripheral pulses, normal rate, regular rhythm Abdomen: normal bowel sounds, soft, non tender, no organomegaly, non distended , no mass Extremities: no cyanosis, no clubbing, no edema Current Medications Medications (Trade) Dose Ordered Sig/Renetta Route PRN Reason Start Time Stop Time Status Last Admin Dose Admin Acetaminophen (Tylenol) 500 mg Q6H PRN ORAL Mild Pain/Temp > 100.5 11/02/17 18:30 11/30/17 18:29 11/03/17 16:05 Acetaminophen/ Hydrocodone Bitart ([place] 5/325) 1 tab Q8H PRN ORAL PAIN 4-10 11/02/17 18:45 11/07/17 10:44 11/04/17 22:43 Amiodarone HCl (Cordarone) 200 mg DAILY ORAL 11/03/17 09:00 11/30/17 10:59 11/04/17 09:28 Amlodipine Besylate (Norvasc) 5 mg BID ORAL 11/04/17 18:00 12/04/17 08:59 11/04/17 17:41 Aspirin (Ecotrin) 325 mg DAILY ORAL 11/03/17 09:00 11/30/17 10:59 11/04/17 09:27 Ceftriaxone Sodium 1 gm/ Dextrose 55 ml @ 110 mls/hr Q24H IVPB 11/03/17 14:00 11/10/17 13:59 11/04/17 14:06 Dextrose (Dextrose 50%) 25 ml STAT PRN IV Hypoglycemia 11/02/17 18:30 12/02/17 18:29 Dextrose (Dextrose 50%) 50 ml STAT PRN IV Hypoglycemia 11/03/17 18:30 11/30/17 18:29 Folic Acid (Folate) 2 mg DAILY ORAL 11/03/17 09:00 12/03/17 08:59 11/04/17 09:28 Furosemide (Lasix) 20 mg DAILY ORAL 11/03/17 09:00 12/01/17 08:59 11/04/17 09:29 Gabapentin (Neurontin) 100 mg Q8HR ORAL 11/02/17 22:00 11/30/17 13:59 11/05/17 05:22 Guaifenesin/ Dextromethorphan (Robitussin DM Syrup) 10 ml Q4H PRN ORAL For Cough 11/02/17 19:00 11/30/17 14:59 11/03/17 05:16 Heparin Sodium (Porcine) (Heparin 5000 units/ml) 5,000 units EVERY 12 HOURS SUBQ 11/02/17 21:00 12/01/17 20:59 11/04/17 21:30 Hydralazine HCl (Apresoline) 25 mg Q4H PRN ORAL BP over 160 syst 11/02/17 19:00 12/02/17 18:59 11/04/17 15:18 Hydralazine HCl (Apresoline) 25 mg Q8H ORAL 11/04/17 17:00 12/04/17 08:59 11/05/17 01:00 Insulin Aspart (NovoLOG) AC+HS SUBQ 11/02/17 21:00 11/30/17 11:29 Ipratropium [place] (Atrovent) 500 mcg Q6H PRN HHN Shortness of Breath 11/02/17 18:00 11/05/17 11:59 Lisinopril (Prinivil) 20 mg BID ORAL 11/04/17 18:00 12/03/17 08:59 11/04/17 17:41 Loperamide HCl (Imodium) 2 mg Q8H PRN ORAL Diarrhea 11/02/17 19:30 11/30/17 19:29 11/03/17 14:34 Metformin HCl (Glucophage) 850 mg BID ORAL 11/02/17 18:00 11/30/17 17:59 11/04/17 17:40 Metoprolol Tartrate (Lopressor) 25 mg Q12HR ORAL 11/04/17 21:00 12/04/17 20:59 11/04/17 21:29 Pantoprazole (Protonix) 40 mg EVERY 12 HOURS ORAL 11/02/17 21:00 11/30/17 20:59 11/04/17 21:29 Potassium Chloride (K-Dur) 20 meq DAILY ORAL 11/03/17 09:00 11/30/17 13:59 11/04/17 09:28 Sertraline HCl (Zoloft) 25 mg DAILY ORAL 11/03/17 09:00 11/30/17 10:59 11/04/17 09:29 Zolpidem Tartrate (Ambien) 5 mg HSPRN PRN ORAL Insomnia 11/02/17 21:00 11/09/17 20:59 11/04/17 21:29 Camacho Briones MD Nov 05, 2017 08:09
[2017-11-05] MEDS ORDERED: Metoprolol Tartrate 12.5mg TAB ORAL SCH (09:00)
[2017-11-05] MEDS ORDERED: APRESOLINE50 MG ORAL (09:27)
[2017-11-05] MEDS ORDERED: HYDRALAZINE HCL25 M2 PO (09:27)
[2017-11-05] MEDS ORDERED: LORAZEPAM0.5 MG ORAL (09:28)
[2017-11-05] MEDS ORDERED: METOPROLOL TART25 MG ORAL ×2 (09:28→10:09)
[2017-11-05] MEDS ORDERED: PROCARDIA XL30 MG ORAL (09:29)
[2017-11-05] MEDS ORDERED: LORazepam 0.5mg tab ORAL PRN (09:30)
[2017-11-05] MEDS ORDERED: LORazepam 0.5mg tab ORAL SCH ×2 (09:30→18:00)
[2017-11-05] MEDS: Amiodarone 200mg tab ORAL SCH (09:36)
[2017-11-05] MEDS: Heparin 5000 units/ml inj SUBQ SCH (09:37)
[2017-11-05] MEDS: Lisinopril 20mg tab ORAL SCH (09:38)
[2017-11-05] MEDS: Aspirin EC 325mg tab ORAL SCH (09:38)
[2017-11-05] MEDS: Sertraline 50mg tab ORAL SCH (09:39)
[2017-11-05] MEDS: Norco 5mg/325mg tab ORAL PRN (09:47)
[2017-11-05] MEDS: HydrALAZINE 50mg tab ORAL SCH ×2 (09:48→14:11)
--- NOTE | 2017-11-05 10:39 | Nephrology Progress Note ---
Assessment/Plan Problem List: (1) Hypertension, accelerated, with diastolic congestive heart failure, NYHA class 1 (2) Diabetes (3) Atrial fibrillation (4) CHF (congestive heart failure) (5) Pneumonia Assessment HTN- DM- Anemia- Pneumonia- At fib- Plan anti anxiety for better BP control IV Iron, PO Folate, SQ B12 adjust bp meds- hold coreg for low bp 2D echo 65% EjFx Anemia cazares BS check ? Dc planning Subjective ROS Limited/Unobtainable: No Objective Objective Last 24 Hour Vital Signs Date Time Temp Pulse Resp B/P (MAP) Pulse Ox O2 Delivery O2 Flow Rate FiO2 11/05/17 09:48 145/61 11/05/17 09:40 19 145/61 11/05/17 09:38 145/61 11/05/17 09:36 19 145/61 11/05/17 08:30 Room Air Room Air 11/05/17 08:00 97.9 19 19 145/61 (89) 98 97.9 11/05/17 04:00 97.8 53 18 157/50 (85) 97 97.8 11/05/17 01:00 137/51 11/05/17 00:00 98.2 53 18 137/51 (79) 94 98.2 11/04/17 21:29 65 175/52 11/04/17 21:00 Room Air Room Air 11/04/17 20:43 Room Air 21 11/04/17 20:42 96 Room Air 21 11/04/17 20:42 63 18 Room Air 21 11/04/17 20:00 99.2 65 18 175/52 (93) 95 99.2 11/04/17 18:58 209/138 11/04/17 17:41 187/62 11/04/17 17:41 187/62 11/04/17 17:41 76 187/62 11/04/17 16:00 97.7 74 20 188/77 (114) 97 97.7 11/04/17 15:18 174/69 11/04/17 12:00 97.5 77 20 174/46 (88) 98 97.5 Intake and Output 11/04/17 11/05/17 19:00 07:00 Intake Total 240 ml Balance 240 ml Intake Oral 240 ml # Voids 5 1 Height (Feet): 5 Height (Inches): 8.00 Weight (Pounds): 229 General Appearance: no apparent distress Cardiovascular: normal rate Respiratory/Chest: lungs clear Abdomen: non tender Objective no change Ghanshyam Negrete MD Nov 05, 2017 10:39
[2017-11-05] MEDS ORDERED: FOLIC ACID1 M1 PO (11:39)
[2017-11-05 12:00] VITALS: BP 157/47
--- NOTE | 2017-11-05 13:20 | General Progress Note ---
Assessment/Plan Status: stable, progressing Assessment/Plan MDD Anxiety d/o -zoloft -provided ro/st -ativan prn Subjective Date patient seen: Nov 05, 2017 Neurologic/Psychiatric: Reports: anxiety, depressed, emotional problems Allergies: Coded Allergies: CODEINE (Verified Allergy, Unknown, 10/31/17) SULFA (SULFONAMIDE ANTIBIOTICS) (Verified Allergy, Unknown, 10/31/17) Objective Last 24 Hour Vital Signs Date Time Temp Pulse Resp B/P (MAP) Pulse Ox O2 Delivery O2 Flow Rate FiO2 11/05/17 12:00 98.9 58 19 157/47 (83) 98 98.9 11/05/17 09:48 145/61 11/05/17 09:40 61 145/61 11/05/17 09:38 145/61 11/05/17 09:36 19 145/61 11/05/17 08:30 Room Air Room Air 11/05/17 08:00 97.9 61 19 145/61 (89) 98 97.9 11/05/17 04:00 97.8 53 18 157/50 (85) 97 97.8 11/05/17 01:00 137/51 11/05/17 00:00 98.2 53 18 137/51 (79) 94 98.2 11/04/17 21:29 65 175/52 11/04/17 21:00 Room Air Room Air 11/04/17 20:43 Room Air 21 11/04/17 20:42 96 Room Air 21 11/04/17 20:42 63 18 Room Air 21 11/04/17 20:00 99.2 65 18 175/52 (93) 95 99.2 11/04/17 18:58 209/138 11/04/17 17:41 187/62 11/04/17 17:41 187/62 11/04/17 17:41 76 187/62 11/04/17 16:00 97.7 74 20 188/77 (114) 97 97.7 11/04/17 15:18 174/69 Intake and Output 11/04/17 11/05/17 19:00 07:00 Intake Total 240 ml Balance 240 ml Intake Oral 240 ml # Voids 5 1 Height (Feet): 5 Height (Inches): 8.00 Weight (Pounds): 229 General Appearance: no apparent distress, alert Neurologic: oriented x 3, responsive, depressed affect Nasrin Fischer MD Nov 05, 2017 13:19
[2017-11-05] MEDS ORDERED: LORazepam 1mg tab ORAL PRN (13:30)
[2017-11-05 14:11] VITALS: BP 158/48
[2017-11-05] MEDS: cefTRIAXone 1 GM in D5W 55 ML IVPB SCH (14:14)
--- NOTE | 2017-11-08 08:02 | Discharge Summary ---
Discharge Summary Discharge Summary _ DATE OF ADMISSION: 10/31/2017 DATE OF DISCHARGE: 11/05/2017 REASON FOR ADMISSION: 82 years old female with past medical history significant for hypertension, congestive heart failure, atrial fibrillation, diabetes mellitus, was sent from the detention facility for evaluation due to shortness of breath and hypoxemia. Upon evaluation patient was afebrile but hypoxic and required placement on 6 L of oxygen via nasal cannula. Chest x-ray revealed patchy infiltrate in the right mid to lower lung . Troponin was negative, pro BNP 310. EKG revealed normal sinus rhythm, no acute ischemic changes. Laboratory workup revealed leukocytosis with WBC 16.2. Stable renal parameters and electrolytes. Urinalysis with evidence of UTI. Patient admitted with diagnosis of pneumonia, urinary tract infection, congestive heart failure, rule out exacerbation CONSULTANTS: pulmonary Dr. Briones ID specialist James Carney harvest manager Dr. Negrete. psychiatrist [facility]: Patient admitted. Patient was on supplemental oxygen, titrated to keep pulse oximetry above 90%. Pulmonary toilet with hand-held nebulizer and chest physiotherapy provided. Patient started on empiric antibiotic as per ID specialist recommendation. Blood culture were negative ,urine culture revealed Escherichia coli , sputum culture revealed Klebsiella. Influenza screen test was negative. Antibiotic regimen optimized as per ID specialist. Per ID, patient will need 2 more days of Levaquin upon discharge, Follow up chest x-ray revealed improvement in infiltrate. Patient was able to be weaned off oxygen [facility] [place] Manager recommended to repeat chest x-ray in one to two weeks to assure complete resolution of infiltrate. Echocardiogram revealed preserved ejection fraction of 65% and right ventricular systolic pressure of 21. Patient was on daily maintenance dose of Lasix with close monitoring of volumes and cardiorenal parameters. Renal parameters and electrolytes were closely monitored. Electrolytes were corrected as needed. Nephrotoxics were avoided. [employer] Member closely followed. DVT prophylaxis provided. Blood pressure initially was uncontrolled and was managed with multiply antihypertensive medications. Blood pressure stabilized. Lipid panel within normal limits. EKG showed normal sinus regional rhythm, no atrial fibrillation. Patient was on aspirin prior to admission, no other anticoagulation. Blood sugar was managed with sliding scale insulin. Hemoglobin A1c 6.2 at goal. Patient noted to have mild anemia. Anemia workup revealed iron deficiency anemia and folate deficiency. Patient received IV Venofer and started on oral folic acid supplement. B12 was on the low range of normal. One dose of vitamin B12 given as well. Hemoglobin and hematocrit were closely monitored with goal to keep hemoglobin above 7. Hemoglobin and hematocrit remained at the baseline. Psychiatrist and evaluated patient. Psychiatrist diagnosed patient with the major depressive disorder and anxiety disorder and optimizes psychiatric medication regimen. Patient clinically improved : blood pressure stabilized , pulse oximetry stable on room air. Patient was ready for discharge back to detention facility FINAL DIAGNOSES: Right lobe pneumonia with Klebsiella Escherichia coli UTI Hypertension accelerated with diastolic CHF class I Diabetes mellitus Atrial fibrillation Congestive heart failure Iron deficiency anemia Folate deficiency anemia Obesity Major depressive disorder Anxiety disorder DISCHARGE MEDICATIONS: See Medication Reconciliation list. DISCHARGE INSTRUCTIONS: Patient was discharged to detention facility. Follow up with medical doctor at the facility. I have been assigned to dictate discharge summary for this account. I was not involved in the patient's management. Jaz Argueta NP Nov 08, 2017 08:02
--- NOTE | 2017-11-08 19:49 | Cardiology Report ---
APPROVED REPORT EKG Measurement Heart [id number] [place] [id number] [id number] Normal sinus rhythm Nonspecific ST and T wave abnormality Abnormal ECG
== END 2017-11-05 14:30 | DRG 177 ==
LOC: EDBD 05:23 → EMR 05:53 → 2E 06:22 → EDBEDREQ 07:12 → 2E 11-01 01:16 → 4E 11-02 17:53
DX: J15.0 Pneumonia due to Klebsiella pneumoniae (principal); I50.33 Acute on chronic diastolic (congestive) heart failure; N39.0 Urinary tract infection, site not specified; I11.0 Hypertensive heart disease with heart failure; B96.20 Unspecified Escherichia coli [E. coli] as the cause of diseases classified elsewhere; E11.9 Type 2 diabetes mellitus without complications; I48.91 Unspecified atrial fibrillation; D50.9 Iron deficiency anemia, unspecified; E66.9 Obesity, unspecified; F32.9 Major depressive disorder, single episode, unspecified; F41.9 Anxiety disorder, unspecified; M19.90 Unspecified osteoarthritis, unspecified site; K21.9 Gastro-esophageal reflux disease without esophagitis; Z79.84 Long term (current) use of oral hypoglycemic drugs; D52.9 Folate deficiency anemia, unspecified
CPT/HCPCS: 36415; 71045; 74230; 80048; 80053; 80061; 80076; 81003; 82550; 82553; 82607; 82728; 82746; 82962; 83036; 83540; 83550; 83605; 83735; 83880; 84100; 84484; 85025; 85610; 85730; 86710; 87040; 87070; 87081; 87086; 87181; 87205; 93005; 93306; 94640; 94664; 94760; 99285; J1815; J7620; J8499

== ENCOUNTER 2018-11-26 12:14 | Emergency (ER) | payer MEDICARE, MEDICAID ==
[~2018-11-26] VITALS: Ht 182.9 cm; Wt 81.6 kg
[~2018-11-26 12:14] MED LIST: ADALAT20 MG ORAL; AMIODARONE HCL400 M1 ORAL; APRESOLINE50 MG ORAL; ASPIRIN EC325 MG ORAL; CARVEDILOL12.5 MG ORAL; FERROUS SULFAT325 MG ORAL; FOLIC ACID1 M1 PO; FUROSEMIDE40 MG ORAL; GABAPENTIN100 MG ORAL; GLIPIZIDE5 MG ORAL; HYDRALAZINE HCL25 M2 PO; LEVAQUIN750 MG ORAL; LISINOPRIL20 MG ORAL; LOPERAMIDE2 MG PO; LORAZEPAM0.5 MG ORAL; MELATONIN 3 MG1 EAC1 PO; METFORMIN HCL850 M1 ORAL; METOPROLOL TART25 MG ORAL; NORCO 5-325 TA1 EACH ORAL; NORVASC5 MG ORAL; PRINIVIL20 MG ORAL; PROCARDIA XL30 MG ORAL; PROTONIX40 MG ORAL; TYLENOL EXTRA500 MG ORAL; VOLTAREN100 G1 TP; ZOLOFT25 MG ORAL
[2018-11-26 12:30] VITALS: BP 115/64
--- NOTE | 2018-11-26 12:30 | NUR ---
ED Nurse Note: pt was brougt in by urmila from snf c/o elevated potassium. K=5.8. pt has no complaint. seen by ermd. will continue to monitor.
--- NOTE | 2018-11-26 12:56 | Diagnostic Imaging Report ---
EXAM: XR Chest, 1 View CLINICAL HISTORY: Chest pain TECHNIQUE: Frontal view of the chest. COMPARISON: Report from chest x-ray dated 11/03/17. No images available. FINDINGS: Lungs: Unremarkable. The lungs appear clear. No focal consolidation. Pleural space: Unremarkable. The costophrenic angles are sharp. No visible pneumothorax. Heart: Unremarkable. No cardiomegaly. Mediastinum: Unremarkable. Bones/joints: Mild degenerative changes throughout the visualized spine. Vasculature: Atherosclerotic calcifications are noted within the aortic arch. IMPRESSION: No acute findings.
[2018-11-26 13:15] LABS: BASOPHILS % (AUTO) 2.5 % (0.0-2.0); EOSINOPHILS % (AUTO) 1.7 % (0.0-3.0); HEMATOCRIT 37.2 % (37.0-47.0); HEMOGLOBIN 11.9 G/DL (12.0-16.0); LYMPHOCYTES % (AUTO) 22.6 % (20.0-45.0); MEAN CORPUSCULAR VOLUME 94 FL (80-99); MONOCYTES % (AUTO) 7.2 % (1.0-10.0); PLATELET COUNT 437 K/UL (150-450); RED BLOOD COUNT 3.95 M/UL (4.20-5.40); RED CELL DISTRIBUTION WIDTH 12.9 % (11.6-14.8); WHITE BLOOD COUNT 11.9 K/UL (4.8-10.8)
[2018-11-26 13:27] LABS: ANION GAP 8 mmol/L (5-15); BLOOD UREA NITROGEN 22 mg/dL (7-18); CALCIUM 9.5 MG/DL (8.5-10.1); CARBON DIOXIDE 27 MMOL/L (21-32); CHLORIDE 98 MMOL/L (98-107); CREATININE 1.3 MG/DL (0.55-1.30); POTASSIUM 4.9 MMOL/L (3.5-5.1); SODIUM 133 MMOL/L (136-145)
[2018-11-26 13:41] LABS: ALANINE AMINOTRANSFERASE 13 U/L (12-78); ALBUMIN 3.2 G/DL (3.4-5.0); ALBUMIN/GLOBULIN RATIO 0.7 (1.0-2.7); ALKALINE PHOSPHATASE 90 U/L (46-116); ASPARTATE AMINO TRANSFERASE 15 U/L (15-37); BILIRUBIN,TOTAL 0.3 MG/DL (0.2-1.0); CREATINE KINASE 31 U/L (26-308)
[2018-11-26 16:37] VITALS: BP 135/88
[2018-11-26 16:55] VITALS: BP 135/88
--- NOTE | 2018-11-26 16:55 | NUR ---
ER DISCHARGE NOTE: pt is transfered back to [facility] and report was given to adriana horvath, pt left the ed with stable vs and with all belongings.
--- NOTE | 2018-11-27 06:42 | Emergency Room Report ---
History of Present Illness General Chief Complaint: Abnormal Labs Source: Patient, Medical Record Present Illness HPI Patient presents from nursing facility with elevated potassium level I was notified by the patient's primary physician that the potassium was over 5 Patient does not have a history of kidney failure On arrival patient is awake and alert denies any chest pain denies any headache denies any abdominal pain denies any dysuria frequency she was aware that she was sent in because of an abnormal electrolytes Allergies: Coded Allergies: CODEINE (Verified Allergy, Unknown, 10/31/17) SULFA (SULFONAMIDE ANTIBIOTICS) (Verified Allergy, Unknown, 10/31/17) Patient History Past Medical History: see triage record Last Menstrual Period: N/A Now: No Reviewed Nursing Documentation: PMH: Agreed; PSxH: Agreed Nursing Documentation-PMH Hx Cardiac Problems: Yes - Heart Failure, a.fib Hx Hypertension: Yes Hx Diabetes: Yes Hx Cancer: No Hx Gastrointestinal Problems: Yes - Peptic ulcer, GERD, Anemia Hx Neurological Problems: No Review of Systems All Other Systems: negative except mentioned in HPI Physical Exam Vital Signs Date Time Temp Pulse Resp B/P (MAP) Pulse Ox O2 Delivery O2 Flow Rate FiO2 11/26/18 12:21 99.0 84 20 115/64 (81) 99 Room Air Sp02 EP Interpretation: reviewed, normal General Appearance: well appearing, no apparent distress Head: normocephalic, atraumatic Eyes: bilateral eye PERRL, bilateral eye EOMI ENT: hearing grossly normal, normal pharynx, TMs + canals normal, uvula midline Neck: full range of motion, supple, no meningismus, no bony tend Respiratory: lungs clear, normal breath sounds, no rhonchi, no respiratory distress, no retraction, no accessory muscle use Cardiovascular #1: normal peripheral pulses, regular rate, rhythm, no edema, no gallop, no JVD, no murmur Gastrointestinal: normal bowel sounds, non tender, soft, no mass, no organomegaly, non-distended, no guarding, no hernia, no pulsatile mass, no rebound Genitourinary: no CVA tenderness Musculoskeletal: normal inspection Neurologic: oriented x3, responsive, lead accountant III-XII nml as tested, motor strength/ tone normal, sensory intact Psychiatric: mood/affect normal Skin: no rash Lymphatic: normal inspection, no adenopathy Medical Decision Making Diagnostic Impression: Primary Impression: dehydration ER Course Patient is a fairly complex patient with multiple differential to consideration including but not limited to cardiac cardiopulmonary and vascular emergencies Patient's labs were repeated here potassium level comes back at 4.9 which is normal Patient's white blood cell count and other blood tests are also normal on reevaluation patient remains asymptomatic given this finding In discussion with patient's primary physician she is stable for transfer back to the longterm and will return with any changes Labs Test 11/26/18 12:50 White Blood Count 11.9 K/UL (4.8-10.8) Red Blood Count 3.95 M/UL (4.20-5.40) Hemoglobin 11.9 G/DL (12.0-16.0) Hematocrit 37.2 % (37.0-47.0) Mean Corpuscular Volume 94 FL (80-99) Mean Corpuscular Hemoglobin 30.0 PG (27.0-31.0) Mean Corpuscular Hemoglobin Concent 31.9 G/DL (32.0-36.0) Red Cell Distribution Width 12.9 % (11.6-14.8) Platelet Count 437 K/UL (150-450) Mean Platelet Volume 5.7 FL (6.5-10.1) Neutrophils (%) (Auto) 66.0 % (45.0-75.0) Lymphocytes (%) (Auto) 22.6 % (20.0-45.0) Monocytes (%) (Auto) 7.2 % (1.0-10.0) Eosinophils (%) (Auto) 1.7 % (0.0-3.0) Basophils (%) (Auto) 2.5 % (0.0-2.0) Sodium Level 133 MMOL/L (136-145) Potassium Level 4.9 MMOL/L (3.5-5.1) Chloride Level 98 MMOL/L (98-107) Carbon Dioxide Level 27 MMOL/L (21-32) Anion Gap 8 mmol/L (5-15) Blood Urea Nitrogen 22 mg/dL (7-18) Creatinine 1.3 MG/DL (0.55-1.30) Estimat Glomerular Filtration Rate mL/min (>60) Glucose Level 77 MG/DL (74-106) Calcium Level 9.5 MG/DL (8.5-10.1) Total Bilirubin 0.3 MG/DL (0.2-1.0) Aspartate Amino Transf (AST/SGOT) 15 U/L (15-37) Alanine Aminotransferase (ALT/SGPT) 13 U/L (12-78) Alkaline Phosphatase 90 U/L (46-116) Total Creatine Kinase 31 U/L (26-308) Creatine Kinase MB 1.0 NG/ML (0.0-3.6) Creatine Kinase MB Relative Index 3.2 Troponin I 0.000 ng/mL (0.000-0.056) Pro-B-Type Natriuretic Peptide 242 pg/mL (0-125) Total Protein 7.7 G/DL (6.4-8.2) Albumin 3.2 G/DL (3.4-5.0) Globulin 4.5 g/dL Albumin/Globulin Ratio 0.7 (1.0-2.7) EKG Diagnostic Results Rate: normal Rhythm: NSR ST Segments: no acute changes Rhythm Strip Diag. Results EP Interpretation: yes Rate: 77 Rhythm: NSR, no PVC's, no ectopy Last Vital Signs Date Time Temp Pulse Resp B/P (MAP) Pulse Ox O2 Delivery O2 Flow Rate FiO2 11/26/18 16:55 99.0 88 20 135/88 99 Room Air Status: improved Disposition: XFER SNF Condition: Improved Referrals: Nia Valdez MD (PCP) Patient Instructions: Dehydration, Adult, [id number] Additional Instructions: Patient is provided with the discharge instructions notified to follow up with primary doctor in the next 2-3 days otherwise return to the er with any worsening symptoms. Please note that this report is being documented using [employer] technology. This can lead to erroneous entry secondary to incorrect interpretation by the dictating instrument. Nia Chaudhry DO Nov 27, 2018 06:42
--- NOTE | 2018-11-29 11:11 | Cardiology Report ---
APPROVED REPORT EKG Measurement Heart [id number] Normal sinus rhythm Voltage criteria for left ventricular hypertrophy Nonspecific ST abnormality Abnormal ECG
== END 2018-11-26 16:55 ==
LOC: EDBD 12:14 → EDUNIT# 12:14 → EMR 12:51 → CANBEDREQ 14:49 → EMR 16:55
DX: E86.0 Dehydration (principal); E11.9 Type 2 diabetes mellitus without complications; I10 Essential (primary) hypertension; I50.9 Heart failure, unspecified; I48.91 Unspecified atrial fibrillation; K21.9 Gastro-esophageal reflux disease without esophagitis; Z87.11 Personal history of peptic ulcer disease; Z88.6 Allergy status to analgesic agent; Z88.2 Allergy status to sulfonamides
CPT/HCPCS: 36415; 71045; 80053; 82550; 82553; 83880; 84484; 85025; 93005; 99284